=== PATIENT | female | born 1965 | race Caucasian/White ===

== ENCOUNTER 2022-07-29 08:04 | Outpatient (CLI) | payer BC, SELFPAY ==
--- NOTE | ~2022-07-29 | MM_ITS ---
EXAMINATION: MM screening binu BI w darlene HISTORY: Screening mammogram TECHNIQUE: Craniocaudal and mediolateral oblique 3-D tomosynthesis images were obtained and synthetic 2-D images were generated. CAD analysis was submitted and interpreted. COMPARISON: No prior mammogram is available for comparison at this institution. BREAST PARENCHYMAL COMPOSITION: There are scattered areas of fibroglandular density. FINDINGS: Bilateral mammographic asymmetries. Bilateral diagnostic mammography is recommended, with ultrasound if required IMPRESSION: 1. Bilateral mammographic asymmetries 2. Bilateral diagnostic mammography is recommended, with ultrasound if required BI-RADS Category 0: Incomplete: Needs additional imaging evaluation. Reviewed, dictated and finalized at location A.
== END 2022-07-29 08:05 | disposition home or self-care (01) ==
LOC: ANHIMG 08:08
PROVIDERS: PCP Internal Medicine; Visit Provider Internal Medicine
DX: Z12.31 Encounter for screening mammogram for malignant neoplasm of breast (principal); R92.8 Other abnormal and inconclusive findings on diagnostic imaging of breast
CPT/HCPCS: 77063; 77067

== ENCOUNTER 2024-01-26 14:59 | Outpatient (CLI) | payer BC, SELFPAY ==
--- NOTE | ~2024-01-26 | MM_ITS ---
EXAMINATION: MM screening binu BI w darlene HISTORY: Screening TECHNIQUE: Craniocaudal and mediolateral oblique 3-D tomosynthesis images were obtained and synthetic 2-D images were generated. CAD analysis was submitted and interpreted. COMPARISON: Comparison to multiple prior studies sequentially, with oldest reviewed study dated 11/14. BREAST PARENCHYMAL COMPOSITION: Not dense: There are scattered areas of fibroglandular density. FINDINGS: There is no evidence of suspicious mass, calcification, or architectural distortion to sugg est malignancy in either breast. There has been no suspicious interval change. IMPRESSION: 1. No mammographic evidence of malignancy. 2. Recommend routine screening mammography in one year. BI-RADS Category 1: Negative Reviewed, dictated and finalized at location B.
== END 2024-01-26 15:00 | disposition home or self-care (01) ==
LOC: ANHIMG 15:02
PROVIDERS: PCP Internal Medicine; Visit Provider Internal Medicine
DX: Z12.31 Encounter for screening mammogram for malignant neoplasm of breast (principal)
CPT/HCPCS: 77063; 77067

== ENCOUNTER 2024-08-02 08:13 | Outpatient (CLI) | payer BC, SELFPAY ==
--- NOTE | ~2024-08-02 | US_ITS ---
EXAMINATION: US thyroid DATE: 08/02/2024 09:42 INDICATION: Thyroid nodule TECHNIQUE: Multiple ultrasound images of the thyroid were obtained. COMPARISON: None. FINDINGS: The right thyroid lobe measures 5.5 x 2.3 x 2.3 cm. The left thyroid lobe measures 4.4 x 1.1 x 1.0 c m. 3.7 x 2.3 x 3.0 cm anomaly solid hypoechoic wider than tall nodule with smooth margins, small rafaela tral anechoic cystic region and without echogenic foci (TI-RADS 4, moderately suspicious , FNA if >=1 .5 cm, annual followup is >=1 cm). There is normal echotexture, echogenicity and vascular flow throug hout the remainder of the thyroid gland. IMPRESSION: 1. 3.7 cm TI-RADS 4 right thyroid nodule for which ultrasound-guided biopsy would be recommended. Reviewed, dictated and finalized at location B. IMPRESSION: 1. 3.7 cm TI-RADS 4 right thyroid nodule for which ultrasound-guided biopsy wou ld be recommended.
--- NOTE | ~2024-08-02 | MR_ITS ---
EXAMINATION: MR brain IAC wo/w con DATE: 08/02/2024 09:12 INDICATION: Left ear tinnitus TECHNIQUE: Magnetic resonance imaging (MRI) of the brain and brainstem was performed without and with 17 mL ProHance intravenous contrast. Sequences included sagittal and axial T1-weighted FSE, axial di ffusion-weighted FS EPI, axial 3-D SWAN, axial T2-weighted FLAIR Propeller, axial T2-weighted Propell er, small kiaux-rx-btpx coronal FIESTA, small beour-of-jogk coronal T1-weighted FSE, and small field- of-view axial T1-weighted SPGR. Postcontrast sequences included axial T1-weighted FSE, small field-of -view coronal T1-weighted FSE, and small jkqif-jx-zynm axial T1-weighted SPGR. Apparent diffusion magdalena fficient (ADC) maps were created. COMPARISON: None. FINDINGS: There are no areas of restricted diffusion to suggest acute infarction. No intracranial hemorrhage or abnormal intracranial mass lesion. There are a few small scattered foci of nonspecific increased T2- weighted signal intensity in the cerebral white matter, predominantly involving the deep and perivent ricular white matter which within normal limits for age and likely sequela of chronic small vessel is chemic disease. There are no intraparenchymal signal abnormalities seen on the other pulse sequences. The ventricles are symmetric and normal in size. Normal seventh/eighth cranial nerve complexes. No cerebellopontine angles masses. Trace left mastoid fluid. No free fluid at the right mastoid or bilat eral middle ear cavities. There are no abnormal extra-axial fluid collections. Flow voids are seen in the cerebral arteries on the T2-weighted sequences consistent with their expected patency. Small muc ous retention cyst in the posterior right maxillary sinus. Visualized orbits and soft tissues are unr emarkable. There are no areas of abnormal enhancement on the post contrast images. IMPRESSION: 1. Trace left mastoid effusion. Otherwise unremarkable MRI of the temporal bones and financial services auditor y canals. 2. Normal for age brain with a few scattered small foci of nonspecific cerebral white matter T2 hyper intensity which could represent sequela of chronic small vessel ischemic disease. No acute intracrani al process or abnormally enhancing brain lesions. Reviewed, dictated and finalized at location B. IMPRESSION: 1. Trace left mastoid effusion. Otherwise unremarkable MRI of the temporal bone s and internal auditory canals. 2. Normal for age brain with a few scattered small foci of nonspecific cerebral white matter T2 hyperintensity which could represent sequela of chronic small vessel ischemic disease. No acute intracranial process or abnormally enhancing brain lesions.
--- OUTSIDE RECORDS SUMMARY | 2024-08-02 08:31 | XMS_ITS | Encounter Summary ---
Author Organization [facility] Facility Care Team Providers Care Therapeutic Case Manager Name Role Phone Unknown, Notinfile Primary Care Provider Unavail able Bautista Preston MD Primary Care Provider [phone] Encounter Details Date Type Department Care Team (Latest Contact Info) Description 10/16/2016 Orders Only [facility] CLINCONV ProviderRossi MD [address] [place] [address] Social History Tobacco Use Types Packs/Day Years Used Date Smoking Tobacco: Never Assessed Comments Unknown Sex and Gender Information Value Date Recorded Sex Assigned at Not on file Legal Sex Female 6:31 PM DIRECTOR OF 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 Historical Provider Final Res ult documented in this encounter Visit Diagnoses Not on filedocumented in this encounter Care Teams Therapeutic Case Manager Relationship Specialty Start Date End Date Unknown, Petrakush PCP - General 07/15/23 07/15/23 Bautista Preston MD PCP - General Internal Medicine 07/16/23 documented as of this encounter
--- OUTSIDE RECORDS SUMMARY | 2024-08-02 08:31 | XMS_ITS | Data Portability ---
Author Organization [place] [facility], Main Office Address [address] [place] [address] Assessment Encounter Date Assessment Date Assessment LastModified by Organization Details LastModified Time 09/18/2022 09/18/2022 Continue current therapy will see her back in about 3-4 months blood work prior [email or web address] Not available 09/18/2022 22:34:05 01/14/2023 01/14/2023 Titrate Ozempic no side effects Lipitor 10 low-fat diet Follow-up 4-6 months [email or web address] Not available 01/14/2023 22:38:06 Plan of Treatment Reminders Order Date Submit Date Provider Last Modified By Organization Details Last Modified Time Details Appointments None recorded. Lab glycohemogl obin, total, blood 2022 023 [facility] (Lab), [address] [place], [address], 4 15:04:25 lipid panel, serum 2022 023 [facility] (Lab), [address] [place], [address], 3 11:41:14 CMP, serum or plasma 2022 023 [facility] (Lab), [address] [place], [address], 3 11:41:14 CBC w/ auto diff 2022 023 [facility] (Lab), [address] [place], [address], 3 09:14:27 Referral None recorded. Procedures None recorded. Surgeries None recorded. Imaging None recorded. Medication Orders Ozempic 2 mg/dose (8 mg/3 mL) subcutaneou s pen injector [address] [id number], [address], [place], [place], [id number], 3 18:04:39 Lipitor 10 mg tablet [address] [id number], [address], [place], [place], [id number], 18:04:39 Patient TargetsNo targets recorded. Patient InstructionsNo instructions recorded. Reason for Referral None Reported. Results Created Date Observation Date Name Description Value Unit Range Abnormal Flag Note LastModifiedBy Organization Detail LastModifiedTime 07/10/1907/06/2022 CT, coron leesa calci um score No observ ation record ed. [address] [facility] [address], [place], [address], 09/18/2022 15:39:22 07/30/19 23 07/29/2022 MAMMO , diagn ostic , bilat eral No observ ation record ed. [address] (Imaging) [address] [place], [place] [address] [address] [place] [address], [phone], 09/18/2022 15:39:37 07/30/19 23 07/29/2022 MAMMO , scree isabella, digit al, bilat eral No observ ation record ed. [address] [place] [address], [address], 08/17/2022 11:57:38 08/07/19 23 07/29/2022 MAMMO , diagn ostic , bilat eral No observ ation record ed. [address], [address], 09/18/2022 15:26:27 Result Notes None recorded. Problems Name Problem SNOMED Code Status Onset Date Resolution Date Notes Provider Name and Address Organization Details Recorded Time Hyperlipidemi a 11007011 Active 2022 Not Available [facility] 3 01:48:23 Weight gain 6121496 Active 2022 Not Available [facility] 3 01:48:23 Mammography abnormal 569976407 Active 2022 SUZI Bolivar, [facility] 3 15:54:00 Type 2 diabetes mellitus without complication 005918249 Active 2022 Isa Young [facility], [facility] 3 17:34:08 Problem Notes None recorded. Procedures Surgical History Date Name Laterality Status Provider Name and Address Organization Details Recorded Time Hysterectomy completed Not Available [facility] 06/25/2022 01:47:34 Sinus Surgery completed Not Available [facility] 06/25/2022 01:47:34 Imaging Results Imaging Date Name Status LastModified by Organiz ation Details LastModified Time 07/06/2022 CT, coronary calcium score completed [address] [facility] [address], [place], [address], 09/18/2022 15:39:22 07/29/2022 MAMMO, diagnostic, bilateral completed [address] (Imaging) [address] [place] [address], [phone], 09/18/2022 15:39:37 07/29/2022 MAMMO, screening, digital, bilateral completed [address], [address], 08/17/2022 11:57:38 07/29/2022 MAMMO, diagnostic, bilateral completed [address], [address], 09/18/2022 15:26:27 Procedure Notes None recorded. Medical Equipment None Reported. Allergies Allergen ID Allergen Name Allergen Category Reaction Reaction Severity Criticality Documentation Date Start Date Code Code System Note Provider Name and Address Organization Details Recorded Time 09293 Compazine medicatio n Not available Not available Not available 06/25/202238158 6 RxNorm Not Available [facility] 3 01:50:50 Medications Name Sig Start Date Stop Date Status Note LastModified by Organization Details LastModified Time atorvastati n 10 mg tablet TAKE 1 TABLET BY MOUTH EVERY DAY active Not Available Not Available No t Available Claritin 2022 active Not Available Not Available Not Avai lable Ozempic 1 mg/dose (4 mg/3 mL) subcutaneou s pen injector INJECT 1 MG UNDER SKIN EVERY WEEK active Not Available Not Available No t Available Ozempic 2 mg/dose (8 mg/3 mL) subcutaneou s pen injector Inject 2 mg every week by subcutane ous route. active Not Available Not Available No t Available Ozempic 0.25 mg or 0.5 mg (2 mg/3 mL) subcutaneou s pen injector INJECT 0.25 MG UNDER SKIN EVERY WEEK FOR 4 WEEKS THEN INJECT 0.5 MG UNDER SKIN EVERY WEEK 12/14 completed Not Available Not Available Not Available Vitals Date Recorded Body mass index (BMI) Body height Heart rate Body temperature Body weight Systolic blood pressure Diastolic blood pressure Provider Name and Address Organization Details Last Updated DateTime 3 13.6 kg/m2 167.64 cm 91 /min 98.6 [degF] 76163.7 6 g 116 mm[Hg] 76 mm[Hg] Not Available [facility] 3 01:47:41 Date Recorded Body height Body mass index (BMI) Body weight Body temperature Heart rate Systolic blood pressure Diastolic blood pressure Provider Name and Address Organization Details Last Updated DateTime 3 167.64 cm 29.1 kg/m2 37699.6 3 g 97.5 [degF] 75 /min 120 mm[Hg] 80 mm[Hg] JU Nicole [place] [facility] [place] [email or web address] [facility] 3 10:40:07 Date Recorded Body height Body mass index (BMI) Body weight Body temperature Heart rate Systolic blood pressure Diastolic blood pressure Provider Name and Address Organization Details Last Updated DateTime 3 167.64 cm 27.1 kg/m2 98301.5 2 g 97.9 [degF] 80 /min 118 mm[Hg] 74 mm[Hg] Shonna rincon RN [place] [facility] [place] [email or web address] [facility] 15:25:29 Social History Question Answer Notes LastModified by Organizat ion Details LastModified Time Tobacco Smoking Status Never Smoker Not Available [facility] 06/25/2022 01:46:51 What Is Your Level Of Alcohol Consumption? Occasional MIGRATION.94684 [id number] Information not available 06/25/2022 What Is Your Level Of Caffeine Consumption? Heavy MIGRATION.77602 40413 Information not available 06/25/2022 In The 14 Days Before Symptom Onset, Have You Had Close Contact With A Laboratory-confi rmed COVID-19 While That Case Was Ill? No MIGRATION.18427 93775 Information not available 06/25/2022 In The 14 Days Before Symptom Onset, Have You Had Close Contact With A Person Who Is Under Investigation For COVID-19 While That Person Was Ill? No MIGRATION.46340 56941 Information not available 06/25/2022 Are You Currently Employed? Yes Information not available 01/14/2023 What Type Of Diet Are You Following? REGULAR MIGRATION.33332 86595 Information not available 06/25/2022 What Is The Highest Grade Or Level Of School You Have Completed Or The Highest Degree You Have Received? 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 No MIGRATION.69518 79473 Information not available 06/25/2022 What Is The Fluoride Status Of Your Home? Fluoridated MIGRATION.19419 32651 Information not available 06/25/2022 Are There Any Guns Present In Your Home? No MIGRATION.30231 44198 Information not available 06/25/2022 Do You Use Insect Repellent Routinely? No MIGRATION.17928 77663 Information not available 06/25/2022 Where Do You Live? [facility] MIGRATION.01490 14688 Information not available 06/25/2022 Do You Have A Medical Power Of Hematology Nurse? No MIGRATION.55760 01632 Information not available 06/25/2022 What Was The Date Of Your Most Recent Tobacco Screening? 01/14/2023 Information not available 01/14/2023 Do You Have Any Pets? Yes MIGRATION.89558 98206 Information not available 06/25/2022 What Is Your Relationship Status? MIGRATION.50235 59262 Information not available 06/25/2022 Do You Have Smoke And Carbon Monoxide Detectors In Your Home? Yes MIGRATION.50777 14532 Information not available 06/25/2022 Are You Passively Exposed To Smoke? No MIGRATION.65425 78490 Information not available 06/25/2022 Are There Any Smokers In Your House? No MIGRATION.34870 18495 Information not available 06/25/2022 Do You Feel Stressed (tense, Restless, Nervous, Or Anxious, Or Unable To Sleep At Night)? [id number] MIGRATION.83130 17978 Information not available 06/25/2022 Do You Use Any Illicit Or Recreational Drugs? No MIGRATION.61128 93803 Information not available 06/25/2022 Do You Use Sunscreen Routinely? Yes MIGRATION.07009 35756 Information not available 06/25/2022 Have You Recently Traveled Abroad? No MIGRATION.55562 57002 Information not available 06/25/2022 Do You Have Any Dietary Restrictions? No MIGRATION.14223 66289 Information not available 06/25/2022 Sex: Unknown Functional Status Question Answer Note LastModified by Organizat ion Details LastModified Time What is your exercise level? None MIGRATION.[id number] Information not available 06/25/2022 Mental Status None recorded. Family History Relationship Description Onset Age of this Age Resolved Age Notes LastModified by Organization Details LastModified Time Father Hypertensive disorder [id number].910 [id number] Not available 06/25/2022 01:47:34 Father Myocardial infarction x2 MIGRATION.461 [id number] Not available 06/25/2022 01:47:34 Mother Asthma MIGRATION.889 [id number] Not available 06/25/2022 01:47:34 Medical History Condition Response HAVE YOU BEEN HOSPITALIZED OR SEEN IN [facility] ER IN THE PAST YEAR ? N Gynecological HistoryNo gynecological history recorded. Obstetrics History GPAL:G 0 P 0 0 0 0 Past Encounters Encounter ID Performer Location Encounter Start Date Encounter Closed Date Diagnosis/Indication Diagnosis SNOMED-CT Code Diagnosis ICD10 Code Diagnosis Note [id number] [facility] Internal Med [place] [address] [facility] [place] [place] [address] 05/26/2022 00:00:00 05/30/2022 16:09:[id number] [facility] Internal Med [facility] [address] [place] [address] 09/18/2022 10:31:59 09/18/2022 11:29:54 Hyperlipidemia 91813058 E78.5 Type 2 araceli betes mellitus without complication 045755041 E11.[id number] [facility] Internal Med [place] [address] [facility] [place] [address] 01/14/2023 15:19:07 01/14/2023 16:57:36 Type 2 diabetes mellitus without complication 103622228 E11.9 Hyperlipidemia 16914079 E78.5 Health Concerns Section Related Observation LastModified by Organization Detai ls LastModified Time None Recorded Concern Status LastModified by Organization Details LastModified Time None Recorded Advance Directives Directive None Recorded Payers Encounter Date Sequence Insurance Name Policy Number Policy Hassan Covered Member ID Hassan Member ID Guarantor Name 09/18/2022 1 [facility] ([place]) [id number] Maddy Jean-Beal rding [id number] Maddy [place] 01/14/2023 1 [employer] 112 Maddy Jean-Beal rding [id number] Maddy [place] Notes Date Note Type Note Provider Name and Address Organization Details Recorded Time 09/18/2022 text/html Tolerating the Ozempic trying to follow a low-fat diet cholesterol was 226 Bautista Preston MD [address], [facility] [address], [place], [address], [employer] [facility] 09/18/2022 22:34:23 01/14/2023 text/html Tolerating OzempicNeeds statin Bautista Preston MD [address], [facility] [address], [place], [address], [employer] [facility] 01/14/2023 22:38:23 OBGyn Episode No OBEpisode recorded.
--- OUTSIDE RECORDS SUMMARY | 2024-08-02 08:31 | XMS_ITS | Encounter Summary ---
Author Organization [facility] Health Address [address] [facility] [place] [address] Care Team Providers Care Addresser Name Role Phone Lolis Caba DO Primary Care Provider [phone] Lolis Caba DO Unavailable [phone] Reason for Visit * Reason Onset Date Comments Question 08/18/2021 Encounter Details Date Type Department Care Team (Late st Contact Info) Description 08/18/2021 Telephone [facility] [address] [facility], [place] [address] Rose Dawson APRN-CNP [facility] [address] Question Social History Tobacco Use Types Packs/Day Years Used Date Smoking Tobacco: Never Smokeless Tobacco: Never Alcohol Use Standard Drinks/Week Comments Yes 0 (1 standard drink = 0.6 oz pur e alcohol) PHQ-2 Answer Date Recorded PHQ2 TOTAL SCORE 0 05/09/2021 Sex and Gender Information Value Date Recorded Sex Assigned at Female 04/16/2021 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 * Telephone Encounter - Edith Pires - 08/18/2021 11:33 AM CDT Mrs. Pena, is requesting a prescription for the shingles vaccinae to be sent to her local pharmaco. We are completely out of stock here in clinic. documented in this encounter Plan of Treatment Not on file documented as of this encounter Visit Diagnoses Not on filedocumented in this encounter Care Teams Addresser Relationship Specialty Start Date End Date Lolis Caba DO PCP - General 08/18/19 Lolis Caba DO [address] [address] PCP - Attributed-[facility] 10/25/19 10/12/22 documented as of this encounter
--- OUTSIDE RECORDS SUMMARY | 2024-08-02 08:31 | XMS_ITS | Data Portability ---
Author Organization [facility] Address [address] [facility] [place] [address] Care Team Providers Care Retail Advisor Name Role Phone JUAN PABLO VIRAL Primary Care Provider MINGO Segundo Youth Liaison Officer JORI CARRERA Screen Printing Press Operator SMITH WELLINGTON Scenic Artist Assessment Encounter Date Assessment Date Assessment LastModified by Organization Details LastModified Time 06/30/2023 06/30/2023 Low-fat diet blood work surgical referral for the skin lesions 1 I think is a lipoma on the other may be but probably both need to be excised since they hurt follow-up with me Not available 07/04/2023 17:21:54 01/03/2024 01/03/2024 body mass index care instructions CMP lipid I told her that she should see her faith doctor every few years just to get a look at the vaginal cuff as vaginal cancer does happen and that then have to see him every year but should check in periodically see me back in 6 months [email or web address] Not available 01/03/2024 22:54:06 07/06/2024 07/06/2024 MRI her brain to include IAC's. CBC CMP lipid. DEXA. Cologuard. Six-month follow up. Claritin for her rhinitis type symptoms if MRIs negative we may have to have her see ENT [email or web address] Not available 07/08/2024 16:29:16 07/20/2024 07/20/2024 obtain thyroid ultrasound and some blood work [email or web address] Not available 07/22/2024 21:43:57 Plan of Treatment Reminders Order Date Submit Date Provider Last Modified By Organization Details Last Modified Time Details Appointments ANY 15 2024 02:00P Loren Preston MD Not available Not available Not available Lab TSH + free T4, serum 2024 025 [facility], [address], [place], [address], 07/24/2024 16:43:32 T3, free, serum or plasma [address], [address], [place], [address], 07/20/2024 15:07:11 thyroglob ulin Ab, serum [address], [address], [place], [address], 07/20/2024 15:07:11 CBC w/ auto diff 2024 025 [facility], [address], [place], [address], 07/20/2024 10:58:25 lipid panel, serum 2024 025 [facility], [address], [place], [address], 07/18/2024 11:46:04 CMP, serum or plasma 2024 025 [facility], [address], [place], [address], 07/18/2024 11:46:04 noninvasi ve colorecta l cancer DNA + occult blood screening , QL, stool 2024 025 [facility] (Cologuard Orders Only), [address], [address], [place], [address], 07/19/2024 11:40:29 CMP, serum or plasma 2023 024 [facility], [address], [place], [address], 01/20/2024 15:14:52 lipid panel, serum 2023 024 [facility], [address], [place], [address], 01/20/2024 15:14:52 lipid panel, serum 2023 024 [facility], [address], [place], [address], 07/07/2023 19:03:25 CBC w/ auto diff 2023 024 [facility], [address], [place], [address], 07/07/2023 19:03:26 CMP, serum or plasma 2023 024 [facility], [address], [place], [address], 07/07/2023 19:03:25 Referral general surgeon referral - Please schedule with Dr Yaz perryleft arm and left leg lesion. 2023 024 [facility], [address] [facility], [facility] [address], [place], [address], 06/30/2023 12:22:09 Procedures None recorded. Surgeries None recorded. Imaging US, thyroid [address] (Imaging), [facility] [address], [address], 07/20/2024 15:07:11 bone density 2024 025 [facility] (Imaging), [address] [facility] [address], [place], [address], 07/07/2024 10:05:20 MRI, brain + internal auditory canal, w/wo contrast 2024 025 [facility] (Imaging), [address], [place], [address], 07/11/2024 10:15:28 Medication Orders atorvasta tin 10 mg tablet 2024 025 [email or web address] [id number], [address], [place], [place], [id number], 07/06/2024 20:55:26 Claritin 10 mg tablet 2024 025 [email or web address] [id number], [address], [place], [place], [id number], 07/06/2024 20:55:26 atorvasta tin 10 mg tablet 2023 024 [email or web address] [facility][id number], [address], [place], [place], [id number], 01/03/2024 21:41:22 Patient TargetsNo targets recorded. Patient Instructions Encounter Date Encounter Id Patient Instructions Last Modified By Organization Details Last Modified Time 01/03/2024 [id number] body mass index: care instructions Not available 01/03/2024 21:41:22 07/06/2024 [id number] A healthy lifestyle: care instructions [email or web address] Not available 07/06/2024 20:55:26 07/20/2024 [id number] A healthy lifestyle: care instructions [email or web address] Not available 07/20/2024 15:07:11 Reason for Referral General Surgeon Referral for Skin lesion Please schedule with Dr Raoleft arm and left leg lesion. Referring Physician: Viral Preston, Internal Medicine, Encounter Date: 06/30/2023 Results Created Date Observation Date Name Description Value Unit Range Abnormal Flag Note LastModifiedBy Organization Detail LastModifiedTime 07/07/19 24 07/07/2023 LIPID PANEL , STAND TITA cholesterol, total 164 mg/dL <200 normal Not Available [address], [address], 07/07/2023 19:03:25 07/07/19 24 07/07/2023 LIPID PANEL , STAND TITA HDL cholesterol 57 mg/dL > or = 50 normal Not Available [address], [address], 07/07/2023 19:03:25 07/07/19 24 07/07/2023 LIPID PANEL , STAND TITA triglyceride s 110 mg/dL <150 normal Not Available [address], [address], 07/07/2023 19:03:25 07/07/19 24 07/07/2023 LIPID PANEL , STAND TITA LDL-choleste rol 86 mg/dL _(merlyn c) normal Refer ence range : <100 Marcellus able range <100 mg/dL for prima ry preve ntion ; <70 mg/dL for patie nts with CHD or diabe tic patie nts with > or = 2 CHD risk facto rs. LDL-C is now calcu lated using the Dorene n-Hop kins calcu mehnaz n, which is a valid ated novel metho d brindai moraima matutete r accur acy than the Fried radha equat ion in the estim ation of LDL-C . Dorene perry SS et al. TANVI. 2013; 310(1 9): 2061- 2068 (http ://ed ucati on.Qu Suzie Breezeworkss. com/f aq/FA Q164) Not Available [address], [address], 07/07/2023 19:03:25 07/07/19 24 07/07/2023 LIPID PANEL , STAND TITA chol/HDLC ratio 2.9 (calc ) <5.0 normal Not Available [address], [address], 07/07/2023 19:03:25 07/07/19 24 07/07/2023 LIPID PANEL , STAND TITA non HDL cholesterol 107 mg/dL _(merlyn c) <130 normal For patie nts with diabe kyra plus 1 major ASCVD risk facto r, treat ing to a non-H DL-C goal of <100 mg/dL (LDL- C of <70 mg/dL ) is consi dered a thera peuti c optio n. Not Available [address], [address], 07/07/2023 19:03:25 07/07/19 24 07/07/2023 COMPR EHENS KRISTEN METAB OLIC PANEL glucose 113 mg/dL 65-99 high Fasti ng refer ence inter quinton For someo ne witho ut known diabe kyra, a gluco se value betwe en 100 and 125 mg/dL is consi stent with predi abete s and shoul d be confi rmed with a follo w-up test. Not Available [address], [address], 07/07/2023 19:03:25 07/07/19 24 07/07/2023 COMPR EHENS KRISTEN METAB OLIC PANEL urea nitrogen (BUN) 18 mg/dL 7-25 normal Not Available [address], [address], 07/07/2023 19:03:25 07/07/19 24 07/07/2023 COMPR EHENS KRISTEN METAB OLIC PANEL creatinine 0.91 mg/dL 0.50-1 .03 normal Not Available [address], [address], 07/07/2023 19:03:25 07/07/19 24 07/07/2023 COMPR EHENS KRISTEN METAB OLIC PANEL eGFR 73 mL/mi n/1.7 3m2 > or = 60 normal Not Available [address] [place], [address], 07/07/2023 19:03:25 07/07/19 24 07/07/2023 COMPR EHENS KRISTEN METAB OLIC PANEL BUN/creatini ne ratio SEE NOTE: (calc ) 6-22 Not Repor valery: BUN and Creat inine are withi n refer ence range . Not Available [address], [address], 07/07/2023 19:03:25 07/07/19 24 07/07/2023 COMPR EHENS KRISTEN METAB OLIC PANEL sodium 143 mmol/ L 135-14 6 normal Not Available [address], [address], 07/07/2023 19:03:25 07/07/19 24 07/07/2023 COMPR EHENS KRISTEN METAB OLIC PANEL potassium 4.6 mmol/ L 3.5-5. 3 normal Not Available [address], [address], 07/07/2023 19:03:25 07/07/19 24 07/07/2023 COMPR EHENS KRISTEN METAB OLIC PANEL chloride 107 mmol/ L 98-110 normal Not Available [address], [address], 07/07/2023 19:03:25 07/07/19 24 07/07/2023 COMPR EHENS KRISTEN METAB OLIC PANEL carbon dioxide 28 mmol/ L 20-32 normal Not Available [address], [address], 07/07/2023 19:03:25 07/07/19 24 07/07/2023 COMPR EHENS KRISTEN METAB OLIC PANEL calcium 9.7 mg/dL 8.6-10 .4 normal Not Available [address], [address], 07/07/2023 19:03:25 07/07/19 24 07/07/2023 COMPR EHENS KRISTEN METAB OLIC PANEL protein, total 7.0 g/dL 6.1-8. 1 normal Not Available [address], [address], 07/07/2023 19:03:25 07/07/19 24 07/07/2023 COMPR EHENS KRISTEN METAB OLIC PANEL albumin 4.5 g/dL 3.6-5. 1 normal Not Available [address], [address], 07/07/2023 19:03:25 07/07/19 24 07/07/2023 COMPR EHENS KRISTEN METAB OLIC PANEL globulin 2.5 g/dL_ (calc ) 1.9-3. 7 normal Not Available [address], [address], 07/07/2023 19:03:25 07/07/19 24 07/07/2023 COMPR EHENS KRISTEN METAB OLIC PANEL albumin/glob ulin ratio 1.8 (calc ) 1.0-2. 5 normal Not Available [address], [address], 07/07/2023 19:03:25 07/07/19 24 07/07/2023 COMPR EHENS KRISTEN METAB OLIC PANEL bilirubin, total 0.5 mg/dL 0.2-1. 2 normal Not Available [address], [address], 07/07/2023 19:03:25 07/07/19 24 07/07/2023 COMPR EHENS KRISTEN METAB OLIC PANEL alkaline phosphatase 85 U/L 37-153 normal Not Available [address], [address], 07/07/2023 19:03:25 07/07/19 24 07/07/2023 COMPR EHENS KRISTEN METAB OLIC PANEL AST 19 U/L 10-35 normal Not Available [address], [address], 07/07/2023 19:03:25 07/07/19 24 07/07/2023 CALI LINDO KRISTEN METAB OLIC PANEL ALT 23 U/L 6-29 normal Not Available [address], [address], 07/07/2023 19:03:25 07/07/19 24 07/07/2023 CBC (INCL UDES DIFF/ PLT) white blood cell count 6.0 thous and/u L 3.8-10 .8 normal Not Available [address], [address], 07/07/2023 19:03:26 07/07/19 24 07/07/2023 CBC (INCL UDES DIFF/ PLT) red blood cell count 5.13 gunnar on/uL 3.80-5 .10 high Not Available [address], [address], 07/07/2023 19:03:26 07/07/19 24 07/07/2023 CBC (INCL UDES DIFF/ PLT) hemoglobin 14.7 g/dL 11.7-1 5.5 normal Not Available [address], [address], 07/07/2023 19:03:26 07/07/19 24 07/07/2023 CBC (INCL UDES DIFF/ PLT) hematocrit 44.9 % 35.0-4 5.0 normal Not Available [address], [address], 07/07/2023 19:03:26 07/07/19 24 07/07/2023 CBC (INCL UDES DIFF/ PLT) MCV 87.5 fL 80.0-1 00.0 normal Not Available [address], [address], 07/07/2023 19:03:26 07/07/19 24 07/07/2023 CBC (INCL UDES DIFF/ PLT) MCH 28.7 pg 27.0-3 3.0 normal Not Available [address], [address], 07/07/2023 19:03:26 07/07/19 24 07/07/2023 CBC (INCL UDES DIFF/ PLT) MCHC 32.7 g/dL 32.0-3 6.0 normal Not Available [address], [address], 07/07/2023 19:03:26 07/07/19 24 07/07/2023 CBC (INCL UDES DIFF/ PLT) RDW 12.5 % 11.0-1 5.0 normal Not Available [address], [address], 07/07/2023 19:03:26 07/07/19 24 07/07/2023 CBC (INCL UDES DIFF/ PLT) platelet count 290 thous and/u L 140-40 0 normal Not Available [address], [address], 07/07/2023 19:03:26 07/07/19 24 07/07/2023 CBC (INCL UDES DIFF/ PLT) MPV 11.4 fL 7.5-12 .5 normal Not Available [address], [address], 07/07/2023 19:03:26 07/07/19 24 07/07/2023 CBC (INCL UDES DIFF/ PLT) absolute neutrophils 2592 cells /uL 1500-7 800 normal Not Available [address], [address], 07/07/2023 19:03:26 07/07/19 24 07/07/2023 CBC (INCL UDES DIFF/ PLT) absolute lymphocytes 2814 cells /uL 850-39 00 normal Not Available [address], [address], 07/07/2023 19:03:26 07/07/19 24 07/07/2023 CBC (INCL UDES DIFF/ PLT) absolute monocytes 396 cells /uL 200-95 0 normal Not Available [address], [address], 07/07/2023 19:03:26 07/07/19 24 07/07/2023 CBC (INCL UDES DIFF/ PLT) absolute eosinophils 168 cells /uL 15-500 normal Not Available [address], [address], 07/07/2023 19:03:26 07/07/19 24 07/07/2023 CBC (INCL UDES DIFF/ PLT) absolute basophils 30 cells /uL 0-200 normal Not Available [address], [address], 07/07/2023 19:03:26 07/07/19 24 07/07/2023 CBC (INCL UDES DIFF/ PLT) neutrophils 43.2 % normal Not Available [address], [address], 07/07/2023 19:03:26 07/07/19 24 07/07/2023 CBC (INCL UDES DIFF/ PLT) lymphocytes 46.9 % normal Not Available [facility] [address], [address], 07/07/2023 19:03:26 07/07/19 24 07/07/2023 CBC (INCL UDES DIFF/ PLT) monocytes 6.6 % normal Not Available [address], [address], 07/07/2023 19:03:26 07/07/19 24 07/07/2023 CBC (INCL UDES DIFF/ PLT) eosinophils 2.8 % normal Not Available [facility] [address] [place], [address], 07/07/2023 19:03:26 07/07/19 24 07/07/2023 CBC (INCL UDES DIFF/ PLT) basophils 0.5 % normal Not Available [facility] [address] [place], [address], 07/07/2023 19:03:26 07/16/19 25 07/15/2024 COLOG UARD cologuard result reportable NEGATI VE negati ve normal NEGAT KRISTEN TEST RESUL T. A negat kristen Colog uard resul t indic ates a low likel ihood that a color ectal cance r (CRC) or advan jose adeno ma (valerio omato us polyp s with more advan joes pre-m align ant featu res) is prese nt. The [facility] e that a perso n with a negat kristen Colog uard test has a color ectal cance r is less than 1 in 1500 (nega tive predi ctive value >99.9 %) or has an advan jose adeno ma is less than 5.3% (nega tive predi ctive value 94.7% ). These data are based on a prosp ectiv e cross -sect ional study of 10,00 0 indiv idual s at [facility] risk for color ectal cance r who were scree keisha with both Colog uard and colon oscop y. (Deep Mcgee et al, N Engl J Med 2014; 370(1 4):12 86-12 97) The shahid l value (refe rence range ) for this assay is negat kristen. COLOG UARD RE-SC REENI NG RECOM MENDA TION: Perio dic color ectal cance r scree isabella is an impor tant part of preve ntive healt hcare for asymp tomat ic indiv idual s at [facility] risk for color ectal cance r. Follo wing a negat kristen Colog uard resul t, the Ameri can Cance r Socie ty and U.S. Multi -Soci ety Task Force scree isabella guide lines recom mend a Colog uard re-sc [facility] of 3 years . Refer ences : Ameri can Cance r Socie ty Guide line for Color ectal Cance r Scree isabella: https ://brit w.can cer.o rg/ca ncer/ colon -rect al-ca ncer/ detec tion- diagn osis- stagi ng/ac s-rec ommen datio ns.ht ml.; Jose DK, Satinder mccartney CR, Lizandro hernandez JK, Color ectal Cance r Scree isabella: Recom menda tions for Physi cians and Patie nts from the U.S. Multi -Soci ety Task Force on Color ectal Cance r Scree isabella , Am Orlando canalesntlew rolog y 2017; 112:1 016-1 030. TEST DESCR IPTIO N: Ronald site algor ithmi c blaise sis of stool DNA-b kirstin mondragon with hemog lobin immun oassa y. Quant itati ve value s of indiv idual bioma rkers are not repor table and are not assoc iated with indiv idual bioma rker resul t refer ence range s. Colog uard is inten ded for color ectal cance r scree isablela of adult s of eithe r sex, 45 years or older , who are at [facility] for color ectal cance r (CRC) . Colog uard has been appro guerrero for use by the U.S. FDA. The perfo rmanc e of Colog uard was estab lishe d in a cross secti onal study of [facility] adult s aged 50-84 . Colog uard perfo rmanc e in patie nts ages 45 to 49 years was estim ated by jia-kaylene cabrales blaise sis of near- age group s. Colon oscop ies perfo rmed for a posit kristen resul t may find as the most clini shana signi fican t lesio n: color ectal cance r [4.0% ], advan jose adeno ma (incl uding sessi le ghazal valery polyp s great er than or equal to 1cm diame ter) [20%] or non- advan jose adeno ma [31%] ; or no color ectal neopl carlos [45%] . These estim ates are deriv ed from a prosp ectiv e cross -sect ional luis mason study of ,00 0 indiv idual s at [facility] risk for color ectal cance r who were scree keisha with both Colog uard and colon oscop y. (Deep Mcgee et al, N Engl J Med 2014; 370(1 4):12 86-12 97.) Colog uard may produ ce a false negat kristen or false posit kristen resul t (no color ectal cance r or preca ncero us polyp prese nt at colon oscop y follo w up). A negat kristen Colog uard test resul t does not guara ntee the absen ce of CRC or advan jose adeno ma (pre- cance r). The curre nt Colog uard luis mason inter [place] is every 3 years . (Amer ican Cance r Socie ty and U.S. Multi -Soci ety Task Force ). Colog uard perfo rmanc e data in a 0 patie nt pivot al study using colon oscop y as the refer ence metho d can be acces sed at the follo wing locat ion: www.e xactl abs.c om/re mumtaz . Addit ional descr iptio n of the Colog uard test proce ss, warni ngs and preca ution s can be found at www.c ologu tita.c om. Not Available [facility] (Cologuard Orders Only) [address], [place], [address], 07/19/2024 11:40:29 01/26/2001/26/2024 MAMMluis Abreu, digit al, bilat eral No observ ation record ed. [facility] [address], [place], [address], 01/28/2024 14:38:26 10/06/15 2301/26/2024 MAMMO , scree isabella, digit al, bilat eral No observ ation record ed. [place] [id number] [facility] [address], [place], [address], 02/24/2024 16:59:46 04/24/20 24 07/29/2022 MAMMO , scree isabella, digit al, bilat eral No observ ation record ed. [facility] Not Available 2023 14:15:43 04/24/20 24 07/29/2022 MAMMO , scree isabella, digit al, bilat eral No observ ation record ed. [facility] Not Available 2023 14:15:43 04/24/2007/09/2022 CT, coron leesa calci um score No observ ation record ed. [facility] Not Available 2023 14:15:43 04/24/20 24 05/27/2022 MAMMO , scree isabella, digit al, bilat eral No observ ation record ed. [facility] Not Available 2023 14:15:43 Result Notes None recorded. Problems Name Problem SNOMED Code Status Onset Date Resolution Date Notes Provider Name and Address Organization Details Recorded Time [facility] [id number] Active 2023 ANITHA Ibarra, [facility] 17:25:11 Problem Notes None recorded. Procedures Surgical History Date Name Laterality Status Provider Name and Address Organization Details Recorded Time 04/26/19 04 Total hysterectomy completed Christi Ernandez MA [facility] 06/30/2023 10:01:32 Imaging Results Imaging Date Name Status LastModified by [facility] Details LastModified Time 01/26/2024 MAMMO, screening, digital, bilateral completed [address], [address], 01/28/2024 14:38:26 01/26/2024 MAMMO, screening, digital, bilateral completed [place] [id number] [facility] [address], [place], [address], 02/24/2024 16:59:46 07/29/2022 MAMMO, screening, digital, bilateral completed [facility] Information not available 04/24/2024 14:15:43 07/29/2022 MAMMO, screening, digital, bilateral completed [facility] Information not available 04/24/2024 14:15:43 07/09/2022 CT, coronary calcium score completed [facility] Information not available 04/24/2024 14:15:43 05/27/2022 MAMMO, screening, digital, bilateral completed [facility] Information not available 04/24/2024 14:15:43 Procedure Notes None recorded. Medical Equipment None Reported. Allergies Allergen ID Allergen Name Allergen Category Reaction Reaction Severity Criticality Documentation Date Start Date Code Code System Note Provider Name and Address Organization Details Recorded Time 16710730 Compazine medicatio n other severe Not available 06/30/202320146 6 RxNorm jaw dropp ing, no contr ol Not Available Not Available Not Available 527077 prochlorp erazine medicatio n other Not available low 07/06/20242012 8704 RxNorm Hype rtoni c react ion to jaw Not Available Not Available Not Available Medications Name Sig Start Date Stop Date Status Note LastModified by Organization Details LastModified Time atorvastatin 10 mg tablet TAKE 1 TABLET BY MOUTH EVERY DAY active Not Available Not Available No t Available Claritin 10 mg tablet Take 1 tablet every day by oral route. 2024 active Not Available Not Available Not Avai lable Ozempic 1 mg/dose (4 mg/3 mL) subcutaneous pen injector INJECT 1 MG UNDER SKIN EVERY WEEK 06/29 completed Not Available Not Available Not Available Ozempic 2 mg/dose (8 mg/3 mL) subcutaneous pen injector INJECT 2MG UNDER THE SKIN ONCE WEEKLY 06/29 completed Not Available Not Available Not Available Ozempic 0.25 mg or 0.5 mg (2 mg/3 mL) subcutaneous pen injector INJECT 0.25 MG UNDER SKIN EVERY WEEK FOR 4 WEEKS THEN INJECT 0.5 MG UNDER SKIN EVERY WEEK 06/29 completed Not Available Not Available Not Available Vitals Date Recorded Body height Body mass index (BMI) Body weight Body temperature Heart rate Oxygen saturation Oxygen saturation in Arterial blood by Pulse oximetry Systolic blood pressure Diastolic blood pressure Provider Name and Address Organization Details Last Updated DateTime 4 167.64 cm 28.9 kg/m2 70626.0 3 g 98.5 [degF] 81 /min 98 % 98 % 124 mm[Hg] 78 mm[Hg] Christi Ernanedz MA [facility] 4 10:06:38 Date Recorded Body height Body mass index (BMI) Body weight Heart rate Oxygen saturation Oxygen saturation in Arterial blood by Pulse oximetry Systolic blood pressure Diastolic blood pressure Provider Name and Address Organization Details Last Updated DateTime 4 167.64 cm 30.3 kg/m2 94308.3 7 g 80 /min 98 % 98 % 128 mm[Hg] 82 mm[Hg] Bhargavi Bloom [facility] 4 16:41:55 Date Recorded Body height Body mass index (BMI) Body weight Heart rate Oxygen saturation Oxygen saturation in Arterial blood by Pulse oximetry Systolic blood pressure Diastolic blood pressure Provider Name and Address Organization Details Last Updated DateTime 5 167.64 cm 29.4 kg/m2 61010.8 1 g 85 /min 98 % 98 % 118 mm[Hg] 72 mm[Hg] Bhargavi Bloom [facility] 5 15:21:56 Date Recorded Body height Body mass index (BMI) Body weight Heart rate Oxygen saturation Oxygen saturation in Arterial blood by Pulse oximetry Systolic blood pressure Diastolic blood pressure Provider Name and Address Organization Details Last Updated DateTime 5 167.64 cm 29.4 kg/m2 57868.8 1 g 71 /min 99 % 99 % 122 mm[Hg] 82 mm[Hg] Bhargavi Bloom [facility] 5 11:02:37 Social History Question Answer Notes LastModified by Organizat ion Details LastModified Time Do You Have An Advance Directive? Yes POA Information not available 06/30/2023 What Is Your Level Of Alcohol Consumption? None Information not available 06/30/2023 Are You Blind Or Do You Have Difficulty Seeing? No Information not available 01/03/2024 What Is Your Level Of Caffeine Consumption? Moderate Information not available 06/30/2023 In The 14 Days Before Symptom Onset, Have You Had Close Contact With A [email or web address] COVID-19 While That Case Was Ill? No Information not available 01/03/2024 In The 14 Days Before Symptom Onset, Have You Had Close Contact With A Person Who Is Under Investigation For COVID-19 While That Person Was Ill? No Information not available 01/03/2024 Have You Been To An Area Known To Be High Risk For COVID-19? No Information not available 01/03/2024 Are You Currently Employed? Yes Information not available 01/03/2024 Are You Deaf Or Do You Have Serious Difficulty Hearing? No Information not available 01/03/2024 What Type Of Diet Are You Following? REGULAR Information not available 01/03/2024 What Was The Date Of Your Most Recent Tobacco Screening? 07/20/2024 Information not available 07/20/2024 What Is Your Relationship Status? Information not available 06/30/2023 Do You Use Your Seat Belt Or Car Seat Routinely? Yes Information not available 06/30/2023 Do You Have Smoke And Carbon Monoxide Detectors In Your Home? Yes Information not available 06/30/2023 Do You Use Any Illicit Or Recreational Drugs? No Information not available 06/30/2023 Do You Use Sunscreen Routinely? Yes Information not available 06/30/2023 Has Tobacco Cessation Counseling Been Provided? Yes Information not available 06/30/2023 On What Date Was Tobacco Cessation Counseling Provided? 07/20/2024 Information not available 07/20/2024 Do You Or Have You Ever Used Any Other Forms Of Tobacco Or Nicotine? No Information not available 06/30/2023 Sex: Female Functional Status Question Answer Note LastModified by Organization D etails LastModified Time Are you able to care for yourself? Yes Information n ot available 01/03/2024 Mental Status None recorded. Family History Relationship Description Onset Age of this Age Resolved Age Notes LastModified by Organization Details LastModified Time Father Coronary arterioscler osis [email or web address] Not available 09/2023 10:00:06 Father Malignant tumor of prostate [email or web address] Not available 03/0 09/2023 10:02:46 Mother Asthma [email or web address] Not availabl e 06/30/2023 10:00:13 Medical History Condition Response Atrial Fibrillation N High Blood Pressure N Thyroid Problems N Kidney or Bladder Problems N GI Problems N Blood Clots N COPD N Depression N Diabetes N Anxiety Disorder N Seizures/Epilepsy N Cancer N Asthma N High Cholesterol Y Hepatitis N Liver Disease N Heart Failure N Gynecological HistoryNo gynecological history recorded. Obstetrics History GPAL:G 0 P 0 0 0 0 Past Encounters Encounter ID Performer Location Encounter Start Date Encounter Closed Date Diagnosis/Indication Diagnosis SNOMED-CT Code Diagnosis ICD10 Code Diagnosis Note [id number] Viral Preston MD [facility] (Adult Med) [address] [place] [address] 06/30/2023 09:45:25 06/30/2023 11:10:21 Hyperlipidemia 99546775 E78.5 Skin lesion 61979375 L98 .9 [id number] Viral Preston MD [facility] [address] [place] [address] 01/03/2024 16:04:47 01/03/2024 17:31:03 Obese 445820799 E66.9 Hyperlipidemia 96217564 E78.5 [id number] Viral Preston MD [facility] [place] [address] [place] [address] 07/06/2024 15:14:00 07/06/2024 16:30:54 Body mass index 25-29 - overweight 456169641 Z68.29 Overweight 321072246 E66 .3 Hyperlipidemia 71761931 E78.5 Postmenopausal state 764 63042 Z78.0 Screening for malignant neoplasm of colon 129233158 Z12.11 Renewal of prescription 691113950 Z76.0 Tinnitus of left ear 760 4475666 106 H93.12 [id number] Viral Preston MD [facility] [employer] [address] [place] [address] 07/20/2024 10:51:06 07/20/2024 11:30:09 Body mass index 25-29 - overweight 689338422 Z68.29 Overweight 564764862 E66 .3 Thyroid nodule 308372155 E04.1 Health Concerns Section Related Observation LastModified by Organization Detai ls LastModified Time None Recorded Concern Status LastModified by Organization Details LastModified Time None Recorded Advance Directives Directive Y: POA Payers Encounter Date Sequence Insurance Name Policy Number Policy Hassan Covered Member ID Hassan Member ID Guarantor Name 06/30/2023 1 [employer]: ([place]) [address] Shane [id number] Maddy Shane 01/03/2024 1 [employer] 112 Daniel Shane [id number] Maddy Shane 07/06/2024 1 [employer] 112 Daniel Shane [id number] Maddy Shane 07/20/2024 1 [employer] 112 Daniel Shane [id number] Maddy Shane Notes Date Note Type Note Provider Name and Address Organization Details Recorded Time 06/30/2023 text/html Hyperlipidemia d oes try to follow low-fat diet. Viral Preston MD Attn: [address] [place], [address], [facility] 07/04/2023 17:22:22 01/03/2024 text/html dyslipidemia try ing to watch her diet allergic rhinitis Claritin doing fine she has had history of a vaginal his and was told she did need to have pelvic exams and more by her obstetrics gynecology physician Viral Preston MD Attn: [address] [place], [address], [place] [facility] 01/03/2024 22:55:15 07/06/2024 text/html left-sided tinni tus for a couple of months no clear-cut headache. Dyslipidemia trying to take her atorvastatin and get healthier. Viral Preston MD Attn: [address] [place], [address], [place] [facility] 07/08/2024 16:29:37 07/20/2024 text/html lump in neck undetermined amount of time she just noticed it Viral Preston MD Attn: [address] [place], [address], [place] [facility] 07/22/2024 21:44:15 OBGyn Episode No OBEpisode recorded.
--- OUTSIDE RECORDS SUMMARY | 2024-08-02 08:31 | XMS_ITS | Encounter Summary ---
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 Historical Provider Final Res ult documented in this encounter Visit Diagnoses Not on filedocumented in this encounter Care Teams Musical String Maker Relationship Specialty Start Date End Date Unknown, [place] PCP - General 07/15/23 07/15/23 Bautista Preston MD PCP - General Internal Medicine 07/16/23 documented as of this encounter
--- OUTSIDE RECORDS SUMMARY | 2024-08-02 08:31 | XMS_ITS | Clinical Summary ---
Author Organization [facility] Address [address] [place] [address] Care Team Providers Care Industry Consultant Name Role Phone Bautista Preston MD Primary Care Provider Allergies Active Allergy Reactions Criticality Noted Date Comments Prochlorperazine Other (See comments) Low 3 Hypertonic reaction to jaw Medications atorvastatin (LIPITOR) 10 mg tablet Take 1 tablet (10 mg total) by mouth daily Active loratadine (CLARITIN) 10 mg tablet Take 1 tablet (10 mg total) by mouth daily Active multivit, min no.[id number] c 27 mg iron- 1 mg tablet Take 1 capsule by mouth daily Active Surgical History Surgery Date Site/Laterality Comments HYSTERECTOMY 04/26/1997 - 04/25/1998 partial SINUS SURGERY 04/26/2000 - 04/25/2001 TONSILLECTOMY Medical History Medical History Date Comments Hypercholesteremia Social History Tobacco Use Types Packs/Day Years Used Date Smoking Tobacco: Never Assessed Comments Unknown Sex and Gender Information Value Date Recorded Sex Assigned at Not on file 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 Gender Identity Not on file Sexual Orientation Not on file Obstetrics History Last Filed Vital Signs Vital Sign Reading Time Taken Comments Blood Pressure 106/87 07/16/2023 11:00 AM CDT Pulse 75 07/16/2023 11:00 AM CDT Temperature 36.4 C (97.6 F) 07/16/2023 10:47 AM CDT Respiratory Rate 18 07/16/2023 11:00 AM CDT Oxygen Saturation 96% 07/16/2023 11:00 AM CDT Inhaled Oxygen Concentration - - Weight 82.6 kg (182 lb 3.2 oz) 07/16/2023 8:40 A M CDT Height 167.6 cm (5' 6 ) 07/16/2023 8:40 AM CDT Body Mass Index 29.41 07/16/2023 8:40 AM CDT Plan of Treatment Health Maintenance Due Date Last Done Comments Colon Cancer Screening-Colonoscopy 1965 Depression Screening 1965 Hepatitis C Screening 1965 Hepatitis B Screening 10/08/1981 Regular Well Visit/Exam 18-64 10/08/1981 Breast Cancer Screening-Mammogram 05/07/2022 05/07/2021, 11/15/2019, 08/21/2016, Additional history exists Covid-19 Vaccine ( season) 2023 02/07/2021, 04/30/2020, 04/11/2020 Influenza Vaccine (#1) 2023 01/25/2022 DTaP/Tdap/Td Vaccine (4 - Td or Tdap) 10/03/2029 10/04/2019, 08/27/2011, 04/26/2011 Zoster Vaccine Completed 08/19/2021, 05/09/2021 Pneumococcal vaccine <65 Aged Out No longer eligible based on patient's age to complete this topic Procedures Procedure Name Priority Date/Time Associated Diagnosis Comments SCREENING MAMMOGRAM 2D BILATERAL Routine 08/07/2013 2:26 PM CDT from Last 3 Months or Most Recently Relevant to Health Maintenance Results * Screening Mammogram 2D Bilateral (08/07/2013 2:26 PM CDT) Anatomical Region Laterality Modality Breast Bilateral Mammography 08/07/2013 2:26 PM CDT Impressions 08/07/2013 3:49 PM CDT No mammographic evidence of malignancy. Routine annual screening mammography is recommended. ASSESSMENT: BI-RADS: 1 NEGATIVE. The patient will be entered into a reminder system for an annual screening mammogram in 1 year. THIS IS AN ELECTRONICALLY VERIFIED REPORT 08/07/2013 3:45 PM: Tian Blackman M.D. Tian Blackman M.D. NH:ms 03:45 PM 03:45 PM [facility] [EOD] Narrative 08/07/2013 3:49 PM CDT EXAMINATION: BILATERAL DIGITAL SCREENING MAMMOGRAM HISTORY: Routine screening. COMPARISON: 06/29/2011, 07/12/2012 FINDINGS: There has been no suspicious interval change. The breast tissue is heterogeneously dense, which may limit the sensitivity of mammography. There is no dominant mass, suspicious calcification or architectural distortion. CAD was utilized to evaluate this mammogram. Procedure Note Provider, MD Rossi - 09/09/2020 EXAMINATION: BILATERAL DIGITAL SCREENING MAMMOGRAM HISTORY: Routine screening. COMPARISON: 06/29/2011, 07/12/2012 FINDINGS: There has been no suspicious interval change. The breast tissue is heterogeneously dense, which may limit thesensitivity of mammography. There is no dominant mass, suspicious calcification or architectural distortion. CAD was utilized to evaluate this mammogram. IMPRESSION: No mammographic evidence of malignancy. Routine annualscreening mammography is recommended. ASSESSMENT: BI-RADS: 1 NEGATIVE. The patient will be entered into [employer] system for an annual screening mammogram in 1 year. THIS IS AN ELECTRONICALLY VERIFIED REPORT 08/07/2013 3:45 PM: Tian Blackman M.D. Tian Blackman M.D. NH:ms 03:45 PM 03:45 PM [facility] [EOD] Bautista Arcos MD IMG MAMMO PROCEDURES Final Result from Last 3 Months or Most Recently Relevant to Health Maintenance Insurance [facility] [place] [place] [address] [facility] [employer] Care Teams Industry Consultant Relationship Specialty Start Date End Date Bautista Preston MD PCP - General Internal Medicine 07/16/23
--- OUTSIDE RECORDS SUMMARY | 2024-08-02 08:31 | XMS_ITS | Referral Summary ---
Author Organization [facility] Address [address] [place] [address] Care Team Providers Care Concrete Spreader Name Role Phone Bautista Preston MD Primary Care Provider [phone] Allergies Active Allergy Reactions Criticality Noted Date Comments Prochlorperazine Other (See comments) Low 3 Hypertonic reaction to jaw Medications atorvastatin (LIPITOR) 10 mg tablet Take 1 tablet (10 mg total) by mouth daily Active loratadine (CLARITIN) 10 mg tablet Take 1 tablet (10 mg total) by mouth daily Active multivit, min no.[id number] c 27 mg iron- 1 mg tablet Take 1 capsule by mouth daily Active Social History Tobacco Use Types Packs/Day Years Used Date Smoking Tobacco: Never Assessed Comments Unknown Sex and Gender Information Value Date Recorded Sex Assigned at Not on file 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 Tian Blackman M.D. NH:al 03:45 PM 03:45 PM [facility] [EOD] Narrative 08/07/2013 3:49 PM CDT EXAMINATION: [...] NEGATIVE. The patient will be entered into [employer] system for an annual screening mammogram in 1 year. THIS IS AN ELECTRONICALLY VERIFIED REPORT 08/07/2013 3:45 PM: Tian Blackman M.D. Tian Blackman M.D. NH:al 03:45 PM 03:45 PM [facility] [EOD] Bautista Arcos MD IMG MAMMO PROCEDURES Final Result from Last 3 Months or Most Recently Relevant to Health Maintenance Insurance [facility] [employer] [employer] Care Teams Concrete Spreader Relationship Specialty Start Date End Date Bautista Preston MD PCP - General Internal Medicine 07/16/23
--- OUTSIDE RECORDS SUMMARY | 2024-08-02 08:31 | XMS_ITS | Clinical Summary ---
Author Organization [facility] Address [address] [place] [address] Care Team Providers Care Qm Consultant Name Role Phone Lolis Caba DO Primary Care Provider [phone] Source Comments [facility],non-owned Affiliates and Associated Physician Practices is amultiple site organization consisting of ambulatory clinics and hospital sitesin [place], [place], [place] and [place]. This disclosure is being madepursuant to the Care Everywhere program and may not contain all information available regarding this patient. Last updated 18.[facility] Allergies Active Allergy Reactions Criticality Noted Date Comments Prochlorperazine Other 11/17/2017 restless Medications * Be aware that medications may not be up to date on this document. Alwaysverify current medications with the patient. Medication Sig Dispensed Refills Start Date End Date Status loratadine (CLARITIN) 10 MG tablet Take 10 mg by mouth once daily Active cetirizine (ZYRTEC ALLERGY) 10 MG gel capsule Take 10 mg by mouth once daily Active azelastine (ASTELIN) 0.1 % nasal spray [place] 1-2 sprays into each nostril 2 times daily Aim tip of spray bottle towards the SAME EYE as the nostril you are spraying in (e.g. when spraying into the left nostril, aim it towards the left eye) 1 Inhaler 2 12/05/2019 Active fluticasone propionate (FLONASE) 50 MCG/ACT nasal spray [place] 2 sprays into each nostril once daily Aim tip of spray bottle towards the SAME EYE as the nostril you are spraying in (e.g. when spraying into the left nostril, aim it towards the left eye) 16 g 2 12/05/2019 Active Active Problems Problem Noted Date Diagnosed Date Establishing care with new doctor, encounter for 11/17/2017 Seasonal allergic rhinitis due to pollen 018 Immunizations Name Administration Dates Next Due TDAP (7yrs+) 10/04/2019 Zoster Hzv Vacc Recombinant Inj Im 05/09/2021 Family History Medical History Relation Name Comments CAD (Coronary Artery Disease) Father Cancer - Skin, Melanoma Maternal Grandmother Asthma Mother Cancer - Skin, Melanoma Mother High Cholesterol Mother Thyroid Disease Other child Cancer - Breast Paternal Aunt CVA Paternal Grandmother Dementia Paternal Grandmother Relation Name Status Comments Father Maternal Grandmother Mother Other Paternal Aunt Paternal Grandmother Social History Tobacco Use Types Packs/Day Years Used Date Smoking Tobacco: Never Smokeless Tobacco: Never Alcohol Use Standard Drinks/Week Comments Yes 0 (1 standard drink = 0.6 oz pur e alcohol) PHQ-2 Answer Date Recorded PHQ2 TOTAL SCORE 0 05/09/2021 Sex and Gender Information Value Date Recorded Sex Assigned at Female 04/16/2021 11:19 AM CLINICAL RESEARCH SPEC Gender Identity Female 04/16/2021 11:19 AM CLINICAL RESEARCH SPEC Sexual Orientation Straight 04/16/2021 11 :19 AM CLINICAL RESEARCH SPEC Last Filed Vital Signs Vital Sign Reading Time Taken Comments Blood Pressure 116/80 05/09/2021 2:14 PM CLINICAL RESEARCH SPEC Pulse 85 05/09/2021 2:14 PM CLINICAL RESEARCH SPEC Temperature 36.4 C (97.5 F) 05/09/2021 2:14 PM CLINICAL RESEARCH SPEC Respiratory Rate - - Oxygen Saturation 98% 05/09/2021 2:14 PM CLINICAL RESEARCH SPEC Inhaled Oxygen Concentration - - Weight 84.8 kg (187 lb) 05/09/2021 2:14 PM CLINICAL RESEARCH SPEC Height 167.6 cm (5' 6 ) 05/09/2021 2:14 PM CLINICAL RESEARCH SPEC Body Mass Index 30.18 05/09/2021 2:14 PM CLINICAL RESEARCH SPEC Plan of Treatment Health Maintenance Due Date Last Done Comments COLON MONITORING 1965 COLONOSCOPY - COLON CA SCREENING 1965 CT COLONOGRAPHY - COLON CA SCREENING 1965 FIT - COLON CA SCREENING 1965 FLEX SIG - COLON CA SCREENING 1965 HIV SCREENING 10/08/1978 PNEUMOCOCCAL VACCINE 50+ (1 of 1 - PCV) 10/08/2013 ZOSTER VACCINE (2 of 2) 07/04/2021 05/09/2021 MAMMOGRAM 05/07/2023 05/07/2021, 10/25, 08/21/2016 COVID-19 VACCINE ( season) 2023 02/07/2021, 04/30/2020, 04/11/2020 DEPRESSION SCREENING 04/26/2024 COLOGUARD (AGES 45-75) - COLON CA SCREENING 05/16/2024 05/16/2021, 05/16/2021, 11/30/2017 Colorectal Cancer Screening 05/16/2024 SCREENING FOR DIABETES 05/23/2024 , 05/23/2021, 10/20/2019, Additional history exists INFLUENZA VACCINE (Season Ended) 2024 03/12/2021 LIPID TESTING 05/23/2026 05/23/2021, 09/25, 11/17/2017 DTAP/TDAP/TD VACCINES (2 - Td or Tdap) 10/03/2029 10/04/2019 Respiratory Syncytial Virus (RSV) Vaccine Pt: or over 60 yrs (1 - 1-dose 75+ series) 10/08/2038 HEPATITIS C SCREENING Completed 10/20/2019 HEPATITIS B VACCINE Aged Out No longe r eligible based on patient's age to complete this topic HIB VACCINE Aged Out No longer eligi ble based on patient's age to complete this topic HPV VACCINE Aged Out No longer eligi ble based on patient's age to complete this topic MENINGOCOCCAL (Group B) VACCINE SHARED DECISION-MAKING Aged Out No longer eligible based on patient's age to complete this topic MENINGOCOCCAL GROUPS A/C/Y/W VACCINE Aged Out No longer eligible based on patient's age to complete this topic PAP SMEAR Discontinued PNEUMOCOCCAL VACCINE Aged Out No long er eligible based on patient's age to complete this topic Procedures Procedure Name Priority Date/Time Associated Diagnosis Comments COMPREHENSIVE METABOLIC PANEL Routine 05/23/2021 9:00 AM CLINICAL RESEARCH SPEC Hair thinning LIPID PROFILE Routine 05/23/2021 9:00 AM CLINICAL RESEARCH SPEC Lipid screening COLOGUARD TEST Routine 05/16/2021 10:00 AM CLINICAL RESEARCH SPEC Colon cancer screening MAMMO BILAT SCREENING W BRUNILDA Routine 05/07/2021 4:31 PM CLINICAL RESEARCH SPEC Screening breast examination HEPATITIS C AB SCREEN RFLX NAAT QUANT Routine 10/20/2019 8:16 AM CDT Encounter for hepatitis C screening test for low risk patient from Last 3 Months or Most Recently Relevant to Health Maintenance Results * (ABNORMAL) COMPREHENSIVE METABOLIC PANEL (05/23/2021 9:00 AM CLINICAL RESEARCH SPEC) BUN 14 7 - 26 mg/dL 05/23/2021 9:59 AM [facility] Creatinine 0.85 0.56 - 0.96 mg/dL 05/23/2021 9:59 AM [facility] Sodium 143 136 - 145 mmol/L 05/23/2021 9:59 AM [facility] Potassium 4.6(H) 3.5 - 4.5 mmol/L 05/23/2021 9:59 AM [facility] Chloride 107 98 - 107 mmol/L 05/23/2021 9:59 AM [facility] CO2 24 22 - 29 mmol/L 05/23/2021 9:59 AM [facility] Glucose 105 70 - 115 mg/dL 05/23/2021 9:59 AM [facility] Calcium 10.0 8.4 - 10.2 mg/dL 05/23/2021 9:59 AM [facility] Protein Total 7.6 6.0 - 8.3 g/dL 05/23/2021 9:59 AM [facility] Albumin 4.4 3.4 - 5.0 g/dL 05/23/2021 9:59 AM [facility] Bilirubin Total 0.7 0.2 - 1.2 mg/dL 05/23/2021 9:59 AM [facility] Alkaline Phosphatase 77 40 - 150 U/L 05/23/2021 9:59 AM [facility] ALT 24 5 - 55 U/L 05/23/2021 9:59 AM [facility] AST 20 5 - 34 U/L 05/23/2021 9:59 AM [facility] Anion Gap 17 8 - 18 05/23/2021 9:59 AM [facility] BUN/Creatinine Ratio 16 7 - 23 05/23/2021 9:59 AM [facility] Osmolality Calculated 297 270 - 300 mOsm/kg 05/23/2021 9:59 AM [facility] Albumin/Globulin Ratio 1.4 1.1 - 2.3 05/23/2021 9:59 AM [facility] eGFR by CKD-EPI 76(L) >=90 mL/min/1.7 3 m2 05/23/2021 9:59 AM [facility] Blood BLOOD SPECIMEN / Unknown Lab Venipuncture / Unknown 05/23/2021 9:00 AM [facility] 05/23/2021 9:22 AM [facility] Lolis Caba DO LAB - CHEMISTRY PATRICEE BARBARA [facility] [address] [place] [id number], [facility] [email or web address]] [phone] * (ABNORMAL) LIPID PROFILE (05/23/2021 9:00 AM [facility]) Cholesterol Total 251(H) <200 mg/dL 05/23/2021 9:59 AM [facility] HDL 49 >40 mg/dL 05/23/2021 9:59 AM [facility] Comment: ATP III Classification of HDL Cholesterol: <40 mg/dL: Considered a major risk factor. >60 mg/dL: Considered a negative risk factor. LDL Calculated 169(H) <100 mg/dL 05/23/2021 9:59 AM [facility] Comment: ATP III Classification of LDL Cholesterol: <100 mg/dL: Optimal 100 - 129 mg/dL: Near Optimal/Above Optimal 130 - 159 mg/dL: Borderline High 160 - 189 mg/dL: High >190 mg/dL: Very High Triglycerides 167(H) <150 mg/dL 05/23/2021 9:59 AM [facility] Comment: ATP III Classification of Triglycerides: <150 mg/dL: Normal 150 - 199 mg/dL: Borderline High 200 - 400 mg/dL: High >500 mg/dL: Very High Blood BLOOD SPECIMEN / Unknown Lab Venipuncture / Unknown 05/23/2021 9:00 AM CLINICAL RESEARCH SPEC 05/23/2021 9:22 AM CLINICAL RESEARCH SPEC Lolis Pimentel Rosales DUP[facility] - CHEMISTRY MOHIT JIMENEZ [facility] [place] [address], [facility] [[email or web address]] [phone] * [id number] COLOGUARD TEST *Associate with Z12.11 OR Z12.12 Dx Codes* (05/16/2021 10:00 AM CLINICAL RESEARCH SPEC) Cologuard Negative Negative [facility] Comment: NEGATIVE TEST RESULT. A negative Cologuard result indicates a low likelihood that a colorectal cancer (CRC) or advanced adenoma (adenomatous polyps with more advanced pre-malignant features) is present. The chance that a person with a negative Cologuard test has a colorectal cancer is less than 1 in 1500 (negative predictive value >99.9%) or has an advanced adenoma is less than 5.3% (negative predictive value 94.7%). These data are based on a prospective cross-sectional study of 10,000 individuals at average risk for colorectal cancer who were screened with both Cologuard and colonoscopy. (Lillie Mcgee et al, N Engl J Med 2014;370(14):5462-3149) The normal value (reference range) for this assay is negative. COLOGUARD RE-SCREENING RECOMMENDATION: Periodic colorectal cancer screening is an important part of preventive healthcare for asymptomatic individuals at average risk for colorectal cancer. Following a negative Cologuard result, the [place] [employer] Society and U.S. Multi-Society Task Force screening guidelines recommend a Cologuard re-screening interval of 3 years. References: [place] [employer] Guideline for Colorectal Cancer Screening: https://www.cancer.org/cancer/gkvsw-lloszw-razwnq/kmlmdbvuw-krvoyzjsb-glxhszn/ acs-recommendations.html.; Jose FREEMAN, Olga CARTWRIGHT, Douglas TATE, Colorectal Cancer Screening: Recommendations for Physicians and Patients from the U.S. Multi-Society Task Force on Colorectal Cancer Screening , Am J Gastroenterology 2017; 112:9507-8356. TEST DESCRIPTION: Composite algorithmic analysis of stool DNA-biomarkers with hemoglobin immunoassay. Quantitative values of individual biomarkers are not reportable and are not associated with individual biomarker result reference ranges. Cologuard is intended for colorectal cancer screening of adults of either sex, 45 years or older, who are at average-risk for colorectal cancer (CRC). Cologuard has been approved for use by the U.S. FDA. The performance of Cologuard was established in a cross sectional study of average-risk adults aged 50-84. Cologuard performance in patients ages 45 to 49 years was estimated by sub-group analysis of near-age groups. Colonoscopies performed for a positive result may find as the most clinically significant lesion: colorectal cancer [4.0%], advanced adenoma (including sessile serrated polyps greater than or equal to 1cm diameter) [20%] or non- advanced adenoma [31%]; or no colorectal neoplasia [45%]. These estimates are derived from a prospective cross-sectional screening study of 10,000 individuals at average risk for colorectal cancer who were screened with both Cologuard and colonoscopy. (Lillie Keller. et al, N Engl J Med 2014;370(14):6759-1375.) Cologuard may produce a false negative or false positive result (no colorectal cancer or precancerous polyp present at colonoscopy follow up). A negative Cologuard test result does not guarantee the absence of CRC or advanced adenoma (pre-cancer). The current Cologuard screening interval is every 3 years. ([place] [employer] Society and U.S. Multi-Society Task Force). Cologuard performance data in a 10,000 patient pivotal study using colonoscopy as the reference method can be accessed at the following location: www.[employer]/results. Additional description of the Cologuard test process, warnings and precautions can be found at www.[employer].com. Stool STOOL SPECIMEN / Unknown 05/16/2021 10:00 AM CLINICAL RESEARCH SPEC 05/17/2021 7:14 AM CLINICAL RESEARCH SPEC Lolis Caba DO LAB - CHEMISTRY MOHIT JIMENEZ [facility] [address] [address] [place] [address] [employer] [address] [place] [address] * MAMMO BILAT SCREENING W BRUNILDA (05/07/2021 4:31 PM CLINICAL RESEARCH SPEC) Anatomical Region Laterality Modality Breast Bilateral Mammography 05/08/2021 9:13 AM CLINICAL RESEARCH SPEC Impressions 05/08/2021 6:04 PM CLINICAL RESEARCH SPEC IMPRESSION: No mammographic evidence of malignancy. RECOMMENDATION: Screening mammography in one year, pending no interval breast concerns. Patient will be notified of the results by lay letter. OVERALL ASSESSMENT: BI-RADS CATEGORY 1: NEGATIVE. Report drafted by Nicole Sullivan MD (resident). I, Dr. CAROLINA GORDON have personally reviewed and interpreted this examination/study. This report was electronically signed by CAROLINA GORDON on 05/08/2021 6:04 PM . Narrative 05/08/2021 6:04 PM CLINICAL RESEARCH SPEC EXAMINATION: DIGITAL MAMMO BILAT SCREENING WITH TOMOSYNTHESIS AND WITH CAD DATE OF EXAM: 05/07/2021 HISTORY: Screening. RISK ASSESSMENT CALCULATION: Patient completed a breast cancer risk assessment during her appointment. Based upon the information she provided and her mammographic breast density, her lifetime risk of developing breast cancer is 10 % (Average Risk <15%; Intermediate / Moderate Risk 15-19%; High Risk > 20%). COMPARISON: Bilateral digital screening mammograms dated 11/15/2019 and 08/21/2016 from this institution as well as 08/07/2013 from [facility] TECHNIQUE: Tomosynthesis (3D) and reconstructed C - view (synthetic 2-D) images acquired and reviewed in the bilateral craniocaudal and mediolateral oblique projections. A total of 5 images were obtained. Computer-aided detection (CAD) was utilized. BREAST PARENCHYMAL COMPOSITION: Category B: There are scattered areas of fibroglandular density. FINDINGS: There are no suspicious findings or evidence of malignancy on mammography. There is no significant change from the prior. Lolis Caba DO MAMMO ORDERABLES * HEPATITIS C AB SCREEN RFLX NAAT QUANT (10/20/2019 8:16 AM CDT) Hepatitis C Antibody Non-react laurie Non-reac tive 10/20/2019 11:49 AM CDT [facility] Comment:Hepatitis C Antibody screen indicates no serologic evidence of past or current infection with Hepatitis C Virus. Patients with unexplained liver disease who are immunocompromised or suspected of having acute Hepatitis C infection may benefit from Nucleic Acid Test (GARRETT) for Hepatitis C Viral RNA to confirm Hepatitis C status. Blood BLOOD SPECIMEN / Unknown Lab Venipuncture / Unknown 10/20/2019 8:16 AM CDT 10/20/2019 8:29 AM CDT Lolis Caba DO LAB - CHEMISTRY MOHIT JIMENEZ [address] [id number] [phone] from Last 3 Months or Most Recently Relevant to Health Maintenance Care Teams Qm Consultant Relationship Specialty Start Date End Date Lolis Caba DO PCP - General 08/18/19
== END 2024-08-02 08:14 | disposition home or self-care (01) ==
PROVIDERS: PCP Internal Medicine; Visit Provider Internal Medicine
DX: H93.12 Tinnitus, left ear (principal); E04.1 Nontoxic single thyroid nodule
CPT/HCPCS: 70553; 76536; A9579

== ENCOUNTER 2024-10-16 11:01 | Outpatient (CLI) | payer BC, SELFPAY ==
--- NOTE | ~2024-10-16 | DEXA_ITS ---
Bone Density Report Name: TEENA GOMEZ Age: 59 Sex: Female Ethnicity: White Date of : 1965 Indication: postmenopausal; screening for osteoporosis; cancer; hysterectomy; Referring Provider: VIRAL CAMPOVERDE Study: Bone densitometry was performed. Exam Date: October 16, 2024 Accession number: [id number] Bone Density: Region BMD T-score Z-score Classification AP Spine(L1-L4) 1.095 0.4 1.9 Normal Femoral Neck (Left) 0.855 0.1 1.4 Normal Total Hip (Left) 1.109 1.4 2.4 Normal Femoral Neck (Right) 0.860 0.1 1.4 Normal Total Hip (Right) 1.057 0.9 1.9 Normal Total Hip Mean 1.083 1.2 2.2 Normal World Health Organization criteria for BMD impression classify patients as: Normal (T-score at or above -1.0), Osteopenia (T-score between -1.0 and -2.5), or Osteoporosis (T-score at or below -2.5). 10-year Fracture Risk: FRAX not reported because: All T-scores for Spine Total, Hip Total, Femoral Neck at or above -1.0 Clinical Information Provided by Patient: Has used the following medications: Vitamin D, Calcium Has the following medical conditions: Cancer, Hysterectomy Patient maximum height was 66.0 Menopause Age: 32 Drinks caffeinated beverages Onset of menses at age 12 Number of children 3 Impression: The patient has normal bone mass. Discussion: BONE DENSITY IS ABOVE THE MINIMUM DESIRABLE LEVEL AT ALL SKELETAL SITES TESTED. This patient?s bone mineral density is above the minimum desirable level (T-score -1.0 or better) at all sites measured. The patient should follow a healthful lifestyle (good nutrition with adequate calcium and vitamin D, and appropriate weight-bearing exercise). Follow-Up: Consider repeating this study in 5 years or sooner if there is some new clinical indication. Reported by: JESSIE on 10/16/2024 11:37:00 AM. Reviewed, dictated and finalized at location A.
== END 2024-10-16 11:02 | disposition home or self-care (01) ==
PROVIDERS: PCP Internal Medicine; Visit Provider Internal Medicine
DX: Z78.0 Asymptomatic menopausal state (principal)
CPT/HCPCS: 77080

== ENCOUNTER 2025-02-19 08:00 | Outpatient (CLI) | payer BC, SELFPAY ==
--- NOTE | ~2025-02-19 | MM_ITS ---
EXAMINATION: MM screening [facility] BI w darlene HISTORY: Screening TECHNIQUE: Craniocaudal and mediolateral oblique 3-D tomosynthesis images were obtained and synthetic 2-D images were generated. CAD analysis was submitted and interpreted. COMPARISON: Comparison to multiple prior studies sequentially, with oldest reviewed study dated 11/15/2019. BREAST PARENCHYMAL COMPOSITION: Not dense: There are scattered areas of fibroglandular density. FINDINGS: There is no evidence of suspicious mass, calcification, or architectural distortion to suggest malignancy in either breast. There has been no suspicious interval change. IMPRESSION: 1. No mammographic evidence of malignancy. 2. Recommend routine screening mammography in one year. BI-RADS Category 1: Negative Reviewed, dictated and finalized at location B.
--- OUTSIDE RECORDS SUMMARY | 2025-02-19 08:06 | XMS_ITS | Encounter Summary ---
Author Organization [facility] Health Address [address] [facility] [place] [address] Care Team Providers Care Rougher Machine Operator Name Role Phone Lolis Caba DO Primary Care Provider [phone] Lolis Caba DO Unavailable [phone] Reason for Visit * Reason Onset Date Comments Question 08/18/2021 Encounter Details Date Type Department Care Team (Late st Contact Info) Description 08/18/2021 Telephone [facility] [address] [facility], [place] [address] Rose Dawson APRN-CNP [address] [place] [id number] Question Social History Tobacco Use Types Packs/Day Years Used Date Smoking Tobacco: Never Smokeless Tobacco: Never Alcohol Use Standard Drinks/Week Comments Yes 0 (1 standard drink = 0.6 oz pur e alcohol) PHQ-2 Answer Date Recorded PHQ2 TOTAL SCORE 0 05/09/2021 Comments No Sex and Gender Information Value Date Recorded Sex Assigned at Female 04/16/2021 11:19 AM BELLHOP CAPTAIN Legal Sex Female 5:39 PM BELLHOP CAPTAIN Gender Identity Female 04/16/2021 11:19 AM BELLHOP CAPTAIN Sexual Orientation Straight 04/16/2021 11 :19 AM BELLHOP CAPTAIN documented as of this encounter Miscellaneous Notes * Telephone Encounter - Rose Dawson APRN-CNP - 08/18/2021 12:48 PM CDT Will send this to Sayra'beth although he should be notified many times [...] on filedocumented in this encounter Care Teams Rougher Machine Operator Relationship Specialty Start Date End Date Lolis Caba DO PCP - General 08/18/19 Lolis Caba DO [address] [address] PCP - Attributed-[facility] 10/25/19 10/12/22 documented as of this encounter
--- OUTSIDE RECORDS SUMMARY | 2025-02-19 08:06 | XMS_ITS | Encounter Summary ---
Author Organization [facility] Facility Care Team Providers Care Golf Cart Repairer Name Role Phone Unknown, Notinfile Primary Care Provider Unavail able Bautista Preston MD Primary Care Provider [phone] Norman Rajput MD Unavailable [phone] OppeltJosemanuel MD Unavailable [phone] Eden Ngo MD Unavailable [phone] Bautista Preston MD Primary Care Provider [phone] Encounter Details Date Type Department Care Team (Latest Contact Info) Description 10/14/2015 Orders Only [facility] CLINCONV Provider, MD Rossi [address] [place] [address] Social History Tobacco Use Types Packs/Day Years Used Date Smoking Tobacco: Never Assessed Comments Unknown Sex and Gender Information Value Date Recorded Sex Assigned at Not on file Legal Sex Female 6:31 PM BACKHOE OPERATOR Gender Identity Female 09/04/2024 9:04 AM CDT Sexual Orientation Straight 09/04/2024 9: 04 AM CDT documented as of this encounter Plan of [...] on filedocumented in this encounter Care Teams Golf Cart Repairer Relationship Specialty Start Date End Date Unknown, Notinfile PCP - General 07/15/23 07/15/23 Bautista Preston MD PCP - General Internal Medicine 07/16/23 10/29/24 Bautista Preston MD [address] [place] [address] PCP - General Internal Medicine 10/30/24 Norman Rajput MD [address] [place] [address] Surgeon General Surgery 09/26/24 Josemanuel Osborne MD [address] [place] [address] [place] [address] Medical Oncologist/Bullet Casting Operator Medical Oncology 10/05/24 Eden Ngo MD [address] [place] [address] Radiation Oncologist Radiation Oncology 10/17/24 documented as of this encounter
--- OUTSIDE RECORDS SUMMARY | 2025-02-19 08:06 | XMS_ITS | Clinical Summary ---
Author Organization [facility] Address [address] [place] [address] Care Team Providers Care Orderlies Teacher Name Role Phone Norman Rajput MD Unavailable [phone] Josemanuel Osborne MD Unavailable [phone] Eden Ngo MD Unavailable [phone] Bautista Preston MD Primary Care Provider [phone] Allergies Active Allergy Reactions Criticality Noted Date Comments Prochlorperazine Other (See comments) Low 3 Hypertonic reaction to jaw Medications atorvastatin (LIPITOR) 10 mg tablet Take 1 tablet (10 mg total) by mouth nightly Active loratadine (CLARITIN) 10 mg tablet Take 1 tablet (10 mg total) by mouth daily Alternate every six months Active cetirizine (ZyrTEC) 10 mg capsule Take 10 mg by mouth nightly Active levothyroxine (SYNTHROID) 137 mcg tablet Take 1 tablet (137 mcg total) 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 90 tablet 3 5 11/07/19 26 Active multivit, min [id number] c 27 mg iron- 1 mg tablet Take 1 capsule by mouth daily 02/07/20 25 Discontinu ed(Patient Reported) oxyCODONE-aceta minophen (PERCOCET) 5-325 mg per tabletIndicatio ns:Pain Take 1-2 tablets by mouth every 6 (six) hours as needed for pain 8 tablet 5 02/07/20 25 Discontinu ed(Patient Reported) Active Problems Problem Noted Date Diagnosed Date H/O partial thyroidectomy 11/06/2024 Assessment & Plan (11/06/2024 5:44 PM CDT): Monitor TFT Patient given prescription of levothyroxine 137 mcg every day to be started after completion thyroidectomy and BRUNER therapy 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 Cancer Staging:Pathologic stage from 10/30/2024:Stage Unknown(pT2, pNX, cM0) - Signed by Eden Ngo MD on 10/30/2024 Overview (11/06/2024): [id number] oncocytic thyroid carcinoma Assessment & Plan (11/06/2024 5:47 PM CDT): Recommend completion thyroidectomy and BRUNER Those are scheduled locally this month and next Plan initiating levothyroxine after BRUNER Discussed TFT recheck 6-8 weeks after starting levothyroxine Discussed biochemical and neck US follow up in 6 months post BRUNER Reviewed pathology and follow up plans Type 2 diabetes mellitus without complication Other abnormal and inconclus laurie findings on diagnostic imaging of breast 08/06/2022 Hyperlipidemia 05/25/2022 Weight gain 05/25/2022 Seasonal allergic rhinitis due to pollen 018 Encounters Date Type Department Care Team Description 02/06/2025 9:15 AM CDT Lab [facility] at [address] [address] Hurthle cell carcinoma of thyroid 02/06/2025 8:30 AM CDT Office Visit [facility] 2 Radiation Oncology [address] [place] [address] Carol Schafer PA Hurthle cell carcinoma of thyroid (Primary Dx) 01/02/[address] [facility] 2 Radiation Oncology [address] [place] [address] Trish Naylor RN 12/29/2024 12:48 PM CDT - 12/29/2024 11:59 PM CDT Hospital Encounter [facility] Nuclear Medicine [address] [place] [address] Hurthle cell carcinoma of thyroid Discharge Disposition: Discharge to home or self care 12/22/2024 1:[address] [facility] 2 Radiation Oncology [address] [place] [address] Alfa Grace MD 12/22/2024 1:19 PM CDT - 12/22/2024 11:59 PM CDT Hospital Encounter [facility] [address] [place] [address] Hurthle cell carcinoma of thyroid Discharge Disposition: Discharge to home or self care 12/06/2024 8:[address] [facility] [address] [place] [address] Hurthle cell carcinoma of thyroid 12/06/[address] 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 Hyperlipidemia 05/25/2022 Other abnormal and inconclus laurie findings on diagnostic imaging of breast 08/06/2022 Seasonal allergic rhinitis due to pollen 018 Weight gain 05/25/2022 PONV (postoperative nausea and vomiting) Motion sickness Family History Medical History Relation Name Comments Prostate cancer Father Breast cancer Father's Sister Skin cancer Mother Colon cancer Paternal Grandmother Relation Name Status Comments Father Alive Father's Sister Mother Alive Paternal Grandmother Social History Tobacco Use Types Packs/Day Years Used Date Smoking Tobacco: Never Passive Smoke Exposure: Past Smokeless Tobacco: Never Tobacco Cessation:Counseling Given: Not Answered AUDIT-C Answer Date Recorded Q1: How often do you have a drink containing alc ohol? Monthly or less 11/08/2024 Q2: How many drinks containi ng alcohol do you have on a typical day when you are drinking? 1 or 2 11/08/2024 Q3: How often do you have si x or more drinks on one occasion? Never 11/08/2024 Personal Safety Answer Date Recorded Have you ever been in or are you currently in a harmful physical or emotional relationship or is someone making you feel afraid or unsafe? 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 Gender Identity Female 09/04/2024 9:04 AM CDT Sexual Orientation Straight 09/04/2024 9: 04 AM CDT Obstetrics History Last Filed Vital Signs Vital Sign Reading Time Taken Comments Blood Pressure 130/84 02/06/2025 8:34 AM CDT Pulse 77 02/06/2025 8:34 AM CDT Temperature 36.3 C (97.4 F) 11/17/2024 10:55 AM CDT Respiratory Rate 18 11/17/2024 11:40 AM CDT Oxygen Saturation 99% 02/06/2025 8:34 AM CDT Inhaled Oxygen Concentration - - Weight 84.2 kg (185 lb 9.6 oz) 02/06/2025 8:34 A M CDT Height 167.6 cm (5' 6) 11/17/2024 6:35 AM CDT Body Mass Index 29.96 11/17/2024 6:35 AM CDT Plan of Treatment Health Maintenance Due Date Last Done Comments Albumin Creatinine Ratio, Urine 1963 Colon Cancer Screening-Colonoscopy 1963 Depression Screening 1963 Hepatitis C Screening 1963 eGFR 1963 Dilated Eye Exam 1963 Foot Exam 1963 Hepatitis B Screening 10/08/1981 Regular Well Visit/Exam 18-64 10/08/1981 Pneumococcal vaccine <65 (1 of 2 - PCV) 10/08/1982 Hemoglobin A1C 11/20/2021 05/23/2021, 10/20/2019 Breast Cancer Screening-Mammogram 05/07/2022 05/07/2021, 05/07/2021, 11/15/2019, Additional history exists Lipid Panel 05/23/2022 05/23/2021 Covid-19 Vaccine (4 - 2024-2 6 season) 2024 02/07/2021, 04/30/2020, 04/11/2020 Influenza Vaccine (#1) 2024 01/25/2022 DTaP/Tdap/Td Vaccine (4 - Td or Tdap) 10/03/2029 10/04/2019, 08/27/2011, 04/26/2011 Zoster Vaccine Completed 08/19/2021, 05/09/2021 Procedures Procedure Name Priority Date/Time Associated Diagnosis Comments REFLEX THYROGLOBULIN, TUMOR MARKER, IA, S Routine 02/06/2025 9:23 AM CDT THYROGLOBULIN REFLEX TO MS OR IA Routine 02/06/2025 9:23 AM CDT Hurthle cell carcinoma of thyroid TSH Routine 02/06/2025 9:23 AM CDT Hurthle cell carcinoma of thyroid T4, FREE Routine 02/06/2025 9:23 AM CDT Hurthle cell carcinoma of thyroid T3, FREE Routine 02/06/2025 9:23 AM CDT Hurthle cell carcinoma of thyroid NM THYROID CANCER METS WHOLE BODY IMAGING Schedule Routine, Read Routine (OP Routine) 12/29/2024 2:32 PM CDT Hurthle cell carcinoma of thyroid NM CANCER ABLATION I-131 THERAPY Schedule Routine, Read Routine (OP Routine) 12/22/2024 1:47 PM CDT Hurthle cell carcinoma of thyroid REFLEX THYROGLOBULIN, TUMOR MARKER, IA, S Routine 12/06/2024 8:54 AM CDT THYROGLOBULIN REFLEX TO MS OR IA Routine 12/06/2024 8:54 AM CDT Hurthle cell carcinoma of thyroid TSH Routine 12/06/2024 8:54 AM CDT Hurthle cell carcinoma of thyroid SCREENING MAMMOGRAM 2D BILATERAL Routine 08/07/2013 2:26 PM CDT from Last 3 Months or Most Recently Relevant to Health Maintenance Results * Reflex thyroglobulin, tumor marker, IA, S (02/06/2025 9:23 AM CDT) Thyroglobulin, Tumor Marker <0.1 < or = 33 ng/mL [place] [facility] Comment:Testing performed by : [facility], [address] [place] [address]., [id number] Thyroglobulin interp See Footnote ISAEL GARCIA Comment: Thyroglobulin (Tg) reference intervals are for patients with an intact thyroid and not for patients who have had surgery for thyroid cancer. Tg reference intervals in patients that have undergone thyroidectomy or any treatment for follicular thyroid cancer are dependent on the residual mass of the thyroid tissue after surgery. Tg results, regardless of concentration, should not be interpreted as absolute evidence for the presence or absence of papillary or follicular thyroid cancer. This result needs to be interpreted in the context of the clinical evaluation. ADDITIONAL INFORMATION PLEASE NOTE: The given cutoff of <1.8 IU/mL is for the detection of potential thyroglobulin antibody (TgAb) interference in thyroglobulin immunoassays. A thyroglobulin antibody (TgAb) reference cutoff of <4.0 IU/mL may be more suitable for the evaluation of autoimmune thyroiditis. The thyroglobulin and thyroglobulin antibody testing methods are immunoenzymatic assays manufactured by [employer] and performed on the [employer] DXI 800. Values obtained from different assay methods or kits may be different and cannot be used interchangeably. The results cannot be interpreted as absolute evidence for the presence or absence of malignant disease. Test Performed by: [facility] [address] [place] [address] Combat Systems Operator: Milagro Boles Ph.D.; CLIA# [id number] Testing performed by: [facility], [address] [place] [address]., [address] Blood 02/06/2025 9:23 AM CDT 02/06/2025 9:34 AM CDT Carol FUENTES LAB BLOOD ORDERABLES Final Result Performing Organization Address [facility]/ZIP Co de Phone Number ISAEL [address] [place] [address] [place] [facility] * Thyroglobulin reflex to MS or IA (02/06/2025 9:23 AM CDT) Anti-thyroglobulin <1.8 <1.8 IUnits/mL [place] [facility] Comment: Thyroglobulin Antibody < 1.8 IU/mL. Thyroglobulin performed by Immunoassay to follow. Test Performed by: [facility] [address] [place] [address] Combat Systems Operator: Milagro Boles Ph.D.; CLIA# [id number] Testing performed by: [facility], [address] [place] [address], [address] Blood 02/06/2025 9:2 3 AM CDT 02/06/2025 9:34 AM CDT Carol FUENTES LAB BLOOD ORDERABLES Final Result Performing Organization Address [facility] Co de Phone Number [address] [place] [address] [place] [facility] * T3, free (02/06/2025 9:23 AM CDT) Free T3 3.4 2.0 - 4.4 pg/mL Blood 02/06/2025 9:23 AM CDT 02/06/2025 2:33 PM CDT Carol FUENTES LAB BLOOD ORDERABLES Final Result Performing Organization Address City/[facility]/ZIP Co de Phone Number [id number] [place] [address] * TSH (02/06/2025 9:23 AM CDT) Thyroid Stimulating Hormone 0.43 0.30 - 4.20 mcIUnit/mL Comment:Testing performed by : [address] [id number] Blood 02/06/2025 9:23 AM CDT 02/06/2025 11:40 AM CDT Carol FUENTES LAB BLOOD ORDERABLES Final Result Performing Organization Address [facility] Co de Phone Number [id number] [place] [address] * (ABNORMAL) T4, free (02/06/2025 9:23 AM CDT) Free T4 2.08(H) 0.90 - 1.70 ng/dL Comment:Testing performed by : [address] [address] Blood 02/06/2025 9:23 AM CDT 02/06/2025 11:40 AM CDT Carol FUENTES LAB BLOOD ORDERABLES Final Result Performing Organization Address [facility] de Phone Number [id number] [address] * NM Thyroid Cancer Mets Whole Body Imaging (12/29/2024 2:32 PM CDT) Anatomical Region Laterality Modality Head and Neck N/A Nuclear Medicine 12/29/2024 3:24 PM CDT Narrative 12/29/2024 3:27 PM CDT EXAM DESCRIPTION: NM THYROID CANCER METS WHOLE BODY IMAGING RADIOPHARMACEUTICAL: 85.5 mCi I-131 sodium iodide p.o. REASON FOR STUDY: History of right thyroid Hurthle cell carcinoma post total thyroidectomy. TECHNIQUE: The patient was given both instructions regarding radiation safety precautions by the performing provider. Delayed whole body scintigrams were obtained 7 days later. STARTED DATE: 12/22/2024 COMPARISON: None FINDINGS: Total body images show retained radiotracer within the neck likely indicating residual thyroid tissue, either benign or malignant. There is hazy distribution of the radiotracer within the mediastinum. A spot view of the chest was obtained which shows resolution of the hazy uptake which was likely artifactual. No other significant areas of uptake are seen to suggest distant metastases. IMPRESSION: 1. Focal uptake within the neck representing residual thyroid tissue, either benign or malignant. 2. No other suspicious areas of uptake are seen. THIS IS AN ELECTRONICALLY VERIFIED FINAL REPORT 12/29/2024 3:27 PM - Electronically signed by Abrahan Ge M.D. LB: LB Report ID: [id number] Reading Location: [id number] Procedure Note Abrahan Ge MD - 12/29/2024 EXAM DESCRIPTION: NM THYROID CANCER METS WHOLE BODY IMAGING RADIOPHARMACEUTICAL: 85.5 mCi I-131 sodium iodide p.o. REASON FOR STUDY: History of right thyroid Hurthle cell carcinoma posttotal thyroidectomy. TECHNIQUE: The patient was given both instructions regarding radiationsafety precautions by the performing provider. Delayed whole body scintigramswere obtained 7 days later. STARTED DATE: 12/22/2024 COMPARISON: None FINDINGS: Total body images show retained radiotracer within the necklikely indicating residual thyroid tissue, either benign or malignant. There ishazy distribution of the radiotracer within the mediastinum. A spot view ofthe chest was obtained which shows resolution of the hazy uptake which waslikely artifactual. No other significant areas of uptake are seen to suggestdistant metastases. IMPRESSION: 1. Focal uptake within the neck representing residual thyroid tissue,either benign or malignant. 2. No other suspicious areas of uptake are seen. THIS IS AN ELECTRONICALLY VERIFIED FINAL REPORT 12/29/2024 3:27 PM - Electronically signed by Abrahan Ge M.D. LB: LB Report ID: [id number] Reading Location: [id number] Eden Ngo MD [facility] NM PROCEDURES Final R esult * NM Cancer Ablation I-131 Therapy (12/22/2024 1:47 PM CDT) Narrative WILL_KALYN_MHE - 12/22/2024 1:47 PM CDT The images from this study are not interpreted by Radiology. Please refer to the physician's procedure / OR operative note. Eden Ngo MD [facility] NM PROCEDURES Final R esult RAD_[id number] * Reflex thyroglobulin, tumor marker, IA, S (12/06/2024 8:54 AM CDT) Thyroglobulin, Tumor Marker 4.5 < or = 33 ng/mL [place] ref [facility] Comment:Testing performed by : [facility], [address] [place] [address]., [address] Thyroglobulin interp See Footnote ISAEL GARCIA Comment: Thyroglobulin (Tg) reference intervals are for patients with an intact thyroid and not for patients who have had surgery for thyroid cancer. Tg reference intervals in patients that have undergone thyroidectomy or any treatment for follicular thyroid cancer are dependent on the residual mass of the thyroid tissue after surgery. Tg results, regardless of concentration, should not be interpreted as absolute evidence for the presence or absence of papillary or follicular thyroid cancer. This result needs to be interpreted in the context of the clinical evaluation. ADDITIONAL INFORMATION PLEASE NOTE: The given cutoff of <1.8 IU/mL is for the detection of potential thyroglobulin antibody (TgAb) interference in thyroglobulin immunoassays. A thyroglobulin antibody (TgAb) reference cutoff of <4.0 IU/mL may be more suitable for the evaluation of autoimmune thyroiditis. The thyroglobulin and thyroglobulin antibody testing methods are immunoenzymatic assays manufactured by [employer] and performed on the [employer] DXI 800. Values obtained from different assay methods or kits may be different and cannot be used interchangeably. The results cannot be interpreted as absolute evidence for the presence or absence of malignant disease. Test Performed by: [address] [address] Combat Systems Operator: Milagro Boles Ph.D.; CLIA# [id number] Testing performed by: [address] [address] Blood 12/06/2024 8:54 AM CDT 12/06/2024 9:17 AM CDT Eden Ngo MD LAB BLOOD ORDERABLES Marifer l Result Performing Organization Address City/[facility] Co de Phone Number [id number] [place] [address] [place] [facility] * Thyroglobulin reflex to MS or IA (12/06/2024 8:54 AM CDT) Anti-thyroglobulin <1.8 <1.8 IUnits/mL [place] [facility] Comment: Thyroglobulin Antibody < 1.8 IU/mL. Thyroglobulin performed by Immunoassay to follow. Test Performed by: [address] [address] Combat Systems Operator: Milagro Boles Ph.D.; CLIA# [id number] Testing performed by: [address] [address] Blood 12/06/2024 8:54 AM CDT 12/06/2024 9:17 AM CDT us Eden Ngo MD LAB BLOOD ORDERABLES Marifer l Result [address] [place] [address] [place] [facility] * (ABNORMAL) TSH (12/06/2024 8:54 AM CDT) Thyroid Stimulating Hormone 66.91(H) 0.30 - 4.20 mcIUnit/mL Comment:Testing performed by : [facility], [address] [place] [address]., [address] Blood 12/06/2024 8:54 AM CDT 12/06/2024 9:16 AM CDT us Eden Ngo MD LAB BLOOD ORDERABLES Marifer rincon Result ISAEL [address] [facility] [place] [address] * Screening Mammogram 2D Bilateral (08/07/2013 2:26 [...] PM: Tian Blackman M.D. Tian Blackman M.D. [place]:sd 03:45 PM 03:45 PM [facility] [EOD] Narrative 08/07/2013 3:49 PM CDT EXAMINATION: [...] NEGATIVE. The patient will be entered into [facility] system for an annual screening mammogram in 1 year. THIS IS AN ELECTRONICALLY VERIFIED REPORT 08/07/2013 3:45 PM: Tian Blackman M.D. Tian Blackman M.D. 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 healthcare, [facility] Care Teams Orderlies Teacher Relationship Specialty Start Date End Date Bautista Preston MD [address] [place] [address] PCP - General Internal Medicine 10/30/24 Norman Rajput MD [address] [place] [address] Surgeon General Surgery 09/26/24 Josemanuel Osborne MD [address] [facility] [address] [place] [address] Medical Oncologist/Enamel Cracker Medical Oncology 10/05/24 Eden Ngo MD [address] [place] [address] Radiation Oncologist Radiation Oncology 10/17/24
--- OUTSIDE RECORDS SUMMARY | 2025-02-19 08:06 | XMS_ITS | Clinical Summary ---
Author Organization [facility] Address [address] [place] [address] Care Team Providers Care Budget Manager Name Role Phone Lolis Caba DO Primary Care Provider [phone] Source Comments [facility],non-owned Affiliates and Associated Physician Practices is amultiple site organization consisting of ambulatory clinics and hospital sitesin [place], [place], [place] and [place]. This disclosure is being madepursuant to the Care Everywhere program and may not contain all information available regarding this patient. Last updated 18.[facility] Allergies Active Allergy Reactions Criticality Noted Date Comments Prochlorperazine Other 11/17/2017 restless Medications * Be aware that medications may not be up to date on this document. Alwaysverify current medications with the patient. loratadine (CLARITIN) 10 MG tablet Take 10 mg by mouth once daily Active cetirizine (ZYRTEC ALLERGY) 10 MG gel capsule Take 10 mg by mouth once daily Active azelastine (ASTELIN) 0.1 % nasal spray [place] 1-2 sprays into each nostril 2 times daily Aim tip of spray bottle towards the SAME EYE as the nostril you are spraying in (e.g. when spraying into the left nostril, aim it towards the left eye) 1 Inhaler 2 12/05/2019 Active fluticasone propionate (FLONASE) 50 MCG/ACT nasal spray [place] 2 sprays into each nostril once daily [...] allergic rhinitis due to pollen 018 Immunizations Immunization Administration Dates Next Due TDAP (7yrs+) 10/04/2019 [...] Sex Assigned at Female 04/16/2021 11:19 AM HOTEL RESERVATIONIST Legal Sex Female 5:39 PM HOTEL RESERVATIONIST Gender Identity Female 04/16/2021 11:19 AM HOTEL RESERVATIONIST Sexual Orientation Straight 04/16/2021 11 :19 AM HOTEL RESERVATIONIST Last Filed Vital Signs Vital Sign Reading Time Taken Comments Blood Pressure 116/80 05/09/2021 2:14 PM HOTEL RESERVATIONIST Pulse 85 05/09/2021 2:14 PM HOTEL RESERVATIONIST Temperature 36.4 C (97.5 F) 05/09/2021 2:14 PM HOTEL RESERVATIONIST Respiratory Rate - - Oxygen Saturation 98% 05/09/2021 2:14 PM HOTEL RESERVATIONIST Inhaled Oxygen Concentration - - Weight 84.8 kg (187 lb) 05/09/2021 2:14 PM HOTEL RESERVATIONIST Height 167.6 cm (5' 6) 05/09/2021 2:14 PM HOTEL RESERVATIONIST Body Mass Index 30.18 05/09/2021 2:14 PM HOTEL RESERVATIONIST Plan of Treatment Health Maintenance Due Date Last Done Comments COLON MONITORING 1965 COLONOSCOPY - COLON CA SCREENING 1965 CT COLONOGRAPHY - COLON CA SCREENING 1965 FIT - COLON CA SCREENING 1965 FLEX SIG - COLON CA SCREENING 1965 HIV SCREENING 10/08/1978 PNEUMOCOCCAL VACCINE 50+ (1 of 1 - PCV) 10/08/2013 ZOSTER VACCINE (2 of 2) 07/04/2021 05/09/2021 MAMMOGRAM 05/07/2023 05/07/2021, 10/25, 08/21/2016 DEPRESSION SCREENING 04/26/2024 COLOGUARD (AGES 45-75) - COLON CA SCREENING 05/16/2024 05/16/2021, 05/16/2021, 11/30/2017 Colorectal Cancer Screening 05/16/2024 SCREENING FOR DIABETES 05/23/2024 , 05/23/2021, 10/20/2019, Additional history exists COVID-19 VACCINE ( - season) 2024 02/07/2021, 04/30/2020, 04/11/2020 INFLUENZA VACCINE (#1) 2024 03/12/2021 LIPID TESTING 05/23/2026 05/23/2021, 09/25, [...] COMPREHENSIVE METABOLIC PANEL Routine 05/23/2021 9:00 AM HOTEL RESERVATIONIST Hair thinning LIPID PROFILE Routine 05/23/2021 9:00 AM HOTEL RESERVATIONIST Lipid screening COLOGUARD TEST Routine 05/16/2021 10:00 AM HOTEL RESERVATIONIST Colon cancer screening MAMMO BILAT SCREENING W BRUNILDA Routine 05/07/2021 4:31 PM HOTEL RESERVATIONIST Screening breast examination HEPATITIS C AB SCREEN RFLX NAAT QUANT Routine 10/20/2019 8:16 AM CDT Encounter for hepatitis C screening test for low risk patient from Last 3 Months or Most Recently Relevant to Health Maintenance Results * (ABNORMAL) COMPREHENSIVE METABOLIC PANEL (05/23/2021 9:00 AM HOTEL RESERVATIONIST) BUN 14 7 - 26 mg/dL 05/23/2021 9:59 AM [facility] Creatinine 0.85 0.56 - 0.96 mg/dL 05/23/2021 9:59 AM [facility] Sodium 143 136 - 145 mmol/L 05/23/2021 9:59 AM [facility] Potassium 4.6(H) 3.5 - 4.5 mmol/L 05/23/2021 9:59 AM [facility] Chloride 107 98 - 107 mmol/L 05/23/2021 9:59 AM [facility] CO2 24 22 - 29 mmol/L 05/23/2021 9:59 AM [facility] Glucose 105 70 - 115 mg/dL 05/23/2021 9:59 AM [facility] Calcium 10.0 8.4 - 10.2 mg/dL 05/23/2021 9:59 AM [facility] Protein Total 7.6 6.0 - 8.3 g/dL 05/23/2021 9:59 AM [facility] Albumin 4.4 3.4 - 5.0 g/dL 05/23/2021 9:59 AM [facility] Bilirubin Total 0.7 0.2 - 1.2 mg/dL 05/23/2021 9:59 AM [facility] Alkaline Phosphatase 77 40 - 150 U/L 05/23/2021 9:59 AM [facility] ALT 24 5 - 55 U/L 05/23/2021 9:59 AM [facility] AST 20 5 - 34 U/L 05/23/2021 9:59 AM [facility] Anion Gap 17 8 - 18 05/23/2021 9:59 AM [facility] BUN/Creatinine Ratio 16 7 - 23 05/23/2021 9:59 AM [facility] Osmolality Calculated 297 270 - 300 mOsm/kg 05/23/2021 9:59 AM [facility] Albumin/Globulin Ratio 1.4 1.1 - 2.3 05/23/2021 9:59 AM [facility] eGFR by CKD-EPI 76(L) >=90 mL/min/1.7 3 m2 05/23/2021 9:59 AM [facility] Blood BLOOD SPECIMEN / Unknown Lab Venipuncture / Unknown 05/23/2021 9:00 AM [facility] 05/23/2021 9:22 AM [facility] Lolis Caba DO LAB - CHEMISTRY ORDERABLES F inal Result [facility] [address] [place] [id number], [facility] [phone] * (ABNORMAL) LIPID PROFILE (05/23/2021 9:00 AM [facility]) Cholesterol Total 251(H) <200 mg/dL 05/23/2021 9:59 AM [facility] HDL 49 >40 mg/dL 05/23/2021 9:59 AM [facility] Comment: ATP III Classification of HDL Cholesterol: <40 mg/dL: Considered a major risk factor. >60 mg/dL: Considered a negative risk factor. LDL Calculated 169(H) <100 mg/dL 05/23/2021 9:59 AM [facility] Comment: ATP III Classification of LDL Cholesterol: <100 mg/dL: Optimal 100 - 129 mg/dL: Near Optimal/Above Optimal 130 - 159 mg/dL: Borderline High 160 - 189 mg/dL: High >190 mg/dL: Very High Triglycerides 167(H) <150 mg/dL 05/23/2021 9:59 AM [facility] Comment: ATP III Classification of Triglycerides: <150 mg/dL: Normal 150 - 199 mg/dL: Borderline High 200 - 400 mg/dL: High >500 mg/dL: Very High Blood BLOOD SPECIMEN / Unknown Lab Venipuncture / Unknown 05/23/2021 9:00 AM HOTEL RESERVATIONIST 05/23/2021 9:22 AM HOTEL RESERVATIONIST Lolis Caba DO LAB - CHEMISTRY ORDERABLES F inal Result [facility] [address] [place] [id number], [facility] [phone] * [id number] COLOGUARD TEST *Associate with Z12.11 OR Z12.12 Dx Codes* (05/16/2021 10:00 AM HOTEL RESERVATIONIST) Cologuard Negative Negative [facility] Comment: NEGATIVE TEST RESULT. A negative [...] Mcgee et al, N Engl J Med 2014;370(14):5000-6052) The normal value (reference range) for this assay is negative. COLOGUARD RE-SCREENING RECOMMENDATION: Periodic colorectal cancer screening is an important part of preventive healthcare for asymptomatic individuals at average risk for colorectal cancer. Following a negative Cologuard result, the [place] Cancer Society and U.S. Multi-Society Task Force screening guidelines recommend a Cologuard re-screening interval of 3 years. References: [place] [employer] Society Guideline for Colorectal Cancer Screening: https://www.cancer.org/cancer/edwnw-pjunzg-yfhdtx/qshqrkupz-ihadntmvb-lxenicy/ acs-recommendations.html.; Jose FREEMAN, Olga CARTWRIGHT, oDuglas TATE, Colorectal Cancer Screening: Recommendations for Physicians and Patients from the U.S. Multi-Society Task Force on Colorectal Cancer Screening , Am J Gastroenterology 2017; 112:1117-0917. TEST DESCRIPTION: Composite algorithmic analysis of stool [...] Keller. et al, N Engl J Med 2014;370(14):7393-2422.) Cologuard may produce a false negative or false positive result (no colorectal cancer or precancerous polyp present at colonoscopy follow up). A negative Cologuard test result does not guarantee the absence of CRC or advanced adenoma (pre-cancer). The current Cologuard screening interval is every 3 years. ([place] Cancer Society and U.S. Multi-Society Task Force). Cologuard performance data in a 10,000 patient pivotal study using colonoscopy as the reference method can be accessed at the following location: www.[employer]Guppies/results. Additional description of the Cologuard test process, warnings and precautions can be found at www.[email or web address].com. Stool STOOL SPECIMEN / Unknown 05/16/2021 10:00 AM HOTEL RESERVATIONIST 05/17/2021 7:14 AM HOTEL RESERVATIONIST Lolis Caba DO LAB - CHEMISTRY ORDERABLES F inal Result [facility] [address] [facility] [address] [place] [address] [facility] [address] [address] * MAMMO BILAT SCREENING W BRUNILDA (05/07/2021 4:31 PM HOTEL RESERVATIONIST) Anatomical Region Laterality Modality Breast Bilateral Mammography 05/08/2021 9:13 AM HOTEL RESERVATIONIST Impressions 05/08/2021 6:04 PM HOTEL RESERVATIONIST IMPRESSION: No mammographic evidence of malignancy. RECOMMENDATION: [...] 6:04 PM . Narrative 05/08/2021 6:04 PM HOTEL RESERVATIONIST EXAMINATION: DIGITAL MAMMO BILAT SCREENING WITH TOMOSYNTHESIS [...] this institution as well as 08/07/2013 from [facility] TECHNIQUE: Tomosynthesis (3D) and reconstructed C [...] the prior. Lolis Caba DO MAMMO ORDERABLES Final Resul t * HEPATITIS C AB SCREEN RFLX NAAT QUANT (10/20/2019 8:16 AM CDT) Hepatitis C Antibody Non-react laurie Non-reac tive 10/20/2019 11:49 AM CDT [facility] Comment:Hepatitis C Antibody screen indicates [...] CDT Lolis Caba DO LAB - CHEMISTRY ORDERABLES F inal Result [address] [address], [facility] [phone] from Last 3 Months or Most Recently Relevant to Health [place] [address] ANTH Member Subscriber Plan / Payer (Ef fective 2017-Present) Name:Teena Gamboa Relation to Subscriber:Spouse Name:JASONDEANDRE Kauffman Subscriber ID:Not on file Date of :1958 (Home) Address: [address] [place] [address] [place] [address] Payer ID:[id number] (NAIC) Group ID:[id number] Type:PPO Address: [facility] [id number] [facility] * Guarantor: TEENA KAUR Account Type Relation to Patient Date of Phone Billing Address Personal/Family [address] [place] [address] Care Teams Budget Manager Relationship Specialty Start Date End Date Lolis Caba DO PCP - General 08/18/19
--- OUTSIDE RECORDS SUMMARY | 2025-02-19 08:06 | XMS_ITS | Encounter Summary ---
Author Organization [facility] Care Team Providers Care Pens And Pencils Repairer Name Role Phone Unknown, Notinfile Primary Care Provider Unavail able Bautista Preston MD Primary Care Provider [phone] Norman Rajput MD Unavailable [phone] OppeltJosemanuel MD Unavailable [phone] Eden Ngo MD Unavailable [phone] Bautista Preston MD Primary Care Provider [phone] Encounter Details Date Type Department Care Team (Latest Contact Info) Description 10/16/2016 Orders Only [facility]INCONV Provider, MD Rossi [address] [place] [id number] Social History Tobacco Use Types Packs/Day Years Used Date Smoking Tobacco: Never Assessed Comments Unknown Sex and Gender Information Value Date Recorded Sex Assigned at Not on file Legal Sex Female 6:31 PM 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 APPRAISER Gender Identity Female 09/04/2024 9:04 AM CDT [...] on filedocumented in this encounter Care Teams Pens And Pencils Repairer Relationship Specialty Start Date End Date Unknown, Notinfile PCP - General 07/15/23 07/15/23 Bautista Preston MD PCP - General Internal Medicine 07/16/23 10/29/24 Bautista Preston MD [address] [place] [id number] PCP - General Internal Medicine 10/30/24 Norman Rajput MD [address] [place] [address] Surgeon General Surgery 09/26/24 Josemanuel Osborne MD [address] [place] [address] [place] [id number] Medical Oncologist/Vocational Rehabilitation Supervisor Medical Oncology 10/05/24 Eden Ngo MD [address] [place] [id number] Radiation Oncologist Radiation Oncology 10/17/24 documented as of this encounter
== END 2025-02-19 08:01 | disposition home or self-care (01) ==
LOC: ANHFOHIMG 08:02
PROVIDERS: PCP Internal Medicine; Visit Provider Obstetrics & Gynecology
DX: Z12.31 Encounter for screening mammogram for malignant neoplasm of breast (principal)
CPT/HCPCS: 77063; 77067